=== PATIENT | female | born 1985 | race Hispanic/Latino ===

== ENCOUNTER 2023-12-08 15:33 | Observation (INO) | payer OTHER, SELFPAY ==
[2023-12-08 16:20] LABS: Absolute Basophils 0.1 K/uL (0-0.5); Absolute Eosinophils 0.1 K/uL (0-0.5); Absolute Lymphocytes (CBC) 1.3 K/uL (0.7-4.9); Absolute Monocytes 0.4 K/uL (0.1-1.3); Basophils % 1.1 % (0-1.3); Eosinophils % 2.4 % (0-4.4); Hematocrit 26.8 % (36.0-45.0); Hemoglobin 7.7 g/dL (12.0-15.0); Lymphocytes % 22.4 % (15.3-44.8); MCH 18.4 pg (27.0-35.0); MCHC 28.8 g/dL (32.0-36.0); MPV 9.2 fL (7.6-11.3); Monocytes % 7.4 % (3.3-12.3); Neutrophils % 66.7 % (41.7-73.7); Platelets 319 thou/uL (152-406); RBC Red Blood Cell Count 4.19 M/uL (3.86-4.86); Red Cell Distribution Width 18.6 % (12.1-15.2)
[2023-12-08 16:30] LABS: PT Prothrombin Time 12.6 SECONDS (9.4-12.5); Protime INR 1.13; Specific Gravity 1.005 (1.005-1.030)
[2023-12-08 16:31] LABS: PTT, Activated Partial Thromb 32.2 SECONDS (24.3-36.9); Specific Gravity 1.005 (1.005-1.030); Sqamous Epithelial <5 /HPF (None Seen); Urine Bacteria <20 /HPF (<20); Urine Bilirubin NEGATIVE (Negative); Urine Blood Negative (Negative); Urine Clarity Turbid (Clear); Urine Color Colorless (Yellow); Urine Culture Reflex Order NOT NEEDED; Urine Glucose NEGATIVE (Negative); Urine Ketones NEGATIVE (Negative); Urine Microscopic Reflex YN ORDER UMIC; Urine Nitrite NEGATIVE (Negative); Urine Protein NEGATIVE (Negative); Urine RBC <5 /HPF (None Seen); Urine Urobilinogen Normal (Normal); Urine WBC <5 /HPF (<5)
[2023-12-08 16:39] LABS: ALT/SGPT 24 U/L (13-56); AST/SGOT 19 U/L (15-37); Albumin 3.8 g/dL (3.4-5.0); Alkaline Phosphatase 27 U/L (45-117); Anion Gap 4.9 mEq/L (5.0-15.0); BUN Blood Urea Nitrogen 10 mg/dL (7-18); Bicarbonate 27 mEq/L (21-32); Bilirubin Direct < 0.2 mg/dL (0-0.2); Bilirubin Total 0.2 mg/dL (0.2-1.0); Globulin 3.7 g/dL (2.3-3.5); Glomerular Filtration Rate 119 ml/min (=/>90); Glucose Level 117 mg/dL (74-106); Potassium 3.9 mEq/L (3.5-5.1); Protein, Total 7.5 g/dL (6.4-8.2); Sodium Level 137 mEq/L (136-145); Troponin High Sensitivity < 3.0 pg/mL (<58.9)
[2023-12-08 17:11] LABS: Blood Morphology Comment NOTED (NOT SEEN); Hypochromasia 2+; Microcytosis 2+; Platelet Estimate ADEQ; White Blood Cell Scan OK (OK)
--- NOTE | 2023-12-08 17:11 | RAD REPORT ---
EXAMINATION: ONE VIEW CHEST XR CLINICAL INDICATION: PALPITATIONS TECHNIQUE: Frontal chest projection is submitted. Examination is limited by patient positioning and t echnique. COMPARISON: No prior exam. FINDINGS: The lungs are well inflated and clear. The heart is normal in size. No displaced fractures identified . IMPRESSION: No acute intrathoracic abnormalities.
--- NOTE | 2023-12-08 17:45 | EDPHYS ---
Physician Documentation [facility] Name: Giana Sands Age: 38 yrs Sex: Female : 1985 Arrival Date: 12/08/2023 Time: 15:33 Bed 10 Private MD: ED Physician Jalil Tubbs HPI: 12/07 17:15 This 38 yrs old Female presents to ER via EMS with complaints of Dizziness. rn 17:15 The patient presents with dizziness, generalized weakness, lightheadedness. Onset: The rn symptoms/episode began/occurred just prior to arrival. Modifying factors: The symptoms are alleviated by lying down, the symptoms are aggravated by standing up, changing position. Associated signs and symptoms: Pertinent negatives: abdominal pain, chest pain, shortness of breath, syncope. Severity of symptoms: At their worst the symptoms were mild in the emergency department the symptoms have improved. The patient has experienced similar episodes in the past. Patient reports was at store and felt lightheaded, dizziness, short of breath with exertion. Patient states has had this happen before but did not require blood transfusion. Has history of anemia. Does not accept blood products. Just finished menstrual period 4 days ago, had some clot. Otherwise is regular. No known malignancy or problems otherwise. Does not take blood thinners. If at rest patient denies any shortness of breath or dizziness. No chest pain. No blood in stool or dark stool.. Historical: - Allergies: 15:41 No Known Allergies; rs5 - PMHx: 15:41 mitral valve prolapse; Anemia; rs5 - PSHx: 15:41 None; rs5 - Immunization history:: Adult Immunizations up to date. - Infectious Disease History:: Denies. - Social history:: Smoking status: Patient denies any tobacco usage or history of. - Family history:: not pertinent. - Hospitalizations: : No recent hospitalization is reported. ROS: 17:15 Constitutional: Negative for fever, chills, and weight loss, Cardiovascular: Positive rn for palpitations Respiratory: Positive for shortness of breath Abdomen/GI: Negative for abdominal pain or blood in stool : Negative for vaginal bleeding currently Neuro: Positive for generalized weakness and lightheaded. Exam: 17:15 Constitutional: This is a well developed, well nourished patient who is awake, alert, rn and in no acute distress. Cardiovascular: Regular rate and rhythm. No pulse deficits. Respiratory: No increased work of breathing, no retractions or nasal flaring. Abdomen/GI: Soft, non-tender MS/ Extremity: Pulses equal, no cyanosis. Neuro: Awake and alert, GCS 15, oriented to person, place, time, and situation. Cranial nerves II-XII grossly intact. Motor strength 5/5 in all extremities. Sensory grossly intact. 17:27 ECG was reviewed by the Attending Physician. rn Vital Signs: 15:39 BP 114 / 79; Pulse 80; Resp 17; Temp 98(O); Pulse Ox 99% on R/A; rs5 17:37 BP 97 / 68; Pulse 84; Resp 18; Pulse Ox 98% on R/A; rs5 17:42 BP 96 / 64; rn 18:30 BP 105 / 71; Pulse 77; Resp 17; Pulse Ox 99% on R/A; rs5 MDM: 15:39 Medical Screening Exam initiated rn 17:18 ED course: Patient with microcytic anemia, initially ordered blood transfusion but rn patient states cannot except blood products. States this has happened once in the past and got iron transfusion and felt better. Spoke with pharmacy and they are preparing iron transfusion to be given then will discharge patient. Patient is supposed be taking iron supplements at home but states they make her stomach upset with nausea and abdominal pain so stopped them. No current bleeding. Recommend [employer] follow-up for possible fibroid or other workup needed.. 17:41 Differential diagnosis: cardiac arrhythmia, generalized weakness, hypovolemia, rn idiopathic dizziness, Anemia from menorrhagia, iron deficiency anemia. Data reviewed: vital signs, nurses notes, lab test result(s), and as a result, I will admit patient. 17:42 Counseling: I had a detailed discussion with the patient and/or guardian regarding the rn historical points, exam findings, and any diagnostic results supporting the discharge/admit diagnosis, lab results, radiology results, the need for further work-up and treatment in the hospital. Response to treatment: There is no appreciated change of the patient's symptoms at this time, and as a result, I will admit patient. ED course: Patient is okay getting iron infusion. On reevaluation patient's blood pressure was 96/64. Verified that she is no longer bleeding. Source is most likely fibroids are menorrhagia. Consulted with Dr. Hansen, hospitalist, is okay observing her overnight given symptomatic anemia and to see if she needs further treatment. Patient is okay with admission for observation.. 12/08 07:46 ED course: Spoke with pharmacy prior to admission, they took verbal order for iron rn wound. . 12/07 15:46 Order name: Basic Metabolic Panel; Complete Time: 16:53 rn 12/07 15:46 Order name: CBC with Diff; Complete Time: 17:14 rn 12/07 15:46 Order name: LFT's; Complete Time: 16:53 rn 12/07 15:46 Order name: Magnesium; Complete Time: 16:53 rn 12/07 15:46 Order name: PT-INR; Complete Time: 16:53 rn 12/07 15:46 Order name: Troponin HS; Complete Time: 16:53 rn 12/07 15:46 Order name: Ptt, Activated; Complete Time: 16:53 rn 12/07 15:46 Order name: Test, Urine; Complete Time: 16:53 rn 12/07 15:46 Order name: Urinalysis w/ reflexes; Complete Time: 16:53 rn 12/07 16:53 Order name: Type And Screen; Complete Time: 07:46 rn 12/07 16:57 Order name: Bb Add On bd 12/07 17:12 Order name: CBC Smear Scan; Complete Time: 17:14 EDMS 12/07 18:00 Order name: ABO/RH no charge; Complete Time: 07:46 EDMS 12/07 18:33 Order name: CBC with Automated Diff EDMS 12/07 18:33 Order name: CBC with Automated Diff; Complete Time: 07:46 EDMS 12/07 18:33 Order name: Comprehensive Metabolic Panel EDMS 12/07 18:33 Order name: Comprehensive Metabolic Panel EDMS 12/07 18:33 Order name: Ferritin EDMS 12/07 18:33 Order name: Ferritin EDMS 12/07 18:33 Order name: Iron EDMS 12/07 18:33 Order name: Iron EDMS 12/07 18:33 Order name: Protime (+INR) EDMS 12/07 18:33 Order name: Protime (+INR); Complete Time: 07:46 EDMS 12/07 18:33 Order name: PTT, Activated Partial Thromb EDMS 12/07 18:33 Order name: PTT, Activated Partial Thromb; Complete Time: 07:46 EDMS 12/07 18:33 Order name: Retic Count EDMS 12/07 18:33 Order name: Retic Count; Complete Time: 07:46 EDMS 12/07 18:33 Order name: Transferrin Sat/Iron Binding EDMS 12/07 18:33 Order name: Transferrin Sat/Iron Binding EDMS 12/07 18:33 Order name: Vitamin B12 Level EDMS 12/07 18:33 Order name: Vitamin B12 Level EDMS 12/07 15:46 Order name: XRAY Chest (1 view); Complete Time: 17:14 rn 12/07 18:38 Order name: Pelvis Complete EDMS 12/07 18:38 Order name: Pelvis Complete EDMS 12/07 15:46 Order name: EKG; Complete Time: 15:46 rn 12/07 15:46 Order name: IV Start; Complete Time: 17:21 rn 12/07 15:46 Order name: Cardiac monitoring; Complete Time: 16:12 rn 12/07 15:46 Order name: EKG - Nurse/Tech; Complete Time: 16:12 rn 12/07 15:46 Order name: Labs collected and sent; Complete Time: 16:12 rn 12/07 15:46 Order name: O2 Per Protocol; Complete Time: 16:12 rn 12/07 15:46 Order name: O2 Sat Monitoring; Complete Time: 16:12 rn EC/30 17:27 Rate is 73 beats/min. Rhythm is regular. QRS [place] is Normal. NC interval is normal. QRS rn interval is normal. QT interval is normal. No Q waves. T waves are Normal. No ST changes noted. Clinical impression: NSR w/ Non-specific ST/T Changes. Interpreted by me. Reviewed by me. Administered Medications: No medications were administered Disposition Summary: 12/08/23 17:44 Hospitalization Ordered Notes: Hospitalization Status: Observation rn Provider: Janet Hansen [facility] Condition: Stable rn Problem: new rn Symptoms: are unchanged rn Bed/Room Type: Standard rn Room Assignment: 411(12/08/23 19:30) lg3 Diagnosis - Anemia, unspecified - symptomatic rn Forms: - Medication Reconciliation Form rn - SBAR form rn - Leadership Thank You Letter rn Signatures: Dispatcher [employer] EDMS Jalil Tubbs MD MD rn Able, Lacie, RN RN lg3 Anoop Christian RN RN rs5 Corrections: (The following items were deleted from the chart) 18:10 17:07 Packed RBC Leukored ordered. EDKS EDMS 19:30 17:44 rn lg3
--- NOTE | 2023-12-08 17:45 | ER ---
Nurse's Notes [facility] Name: Giana aSnds Age: 38 yrs Sex: Female : 1985 Arrival Date: 12/08/2023 Time: 15:33 Bed 10 Private MD: Diagnosis: Anemia, unspecified-symptomatic Presentation: 12/07 15:39 Chief complaint: EMS states: Sudden onset dizziness, palpitations, and SOB that started rs5 at \T\[id number], denies chest pains at this moment. Coronavirus screen: At this time, the client does not indicate any symptoms associated with coronavirus-19. Ebola Screen: No symptoms or risks identified at this time. Initial Sepsis Screen: Does the patient meet any 2 criteria? RR > 20 per min. Does the patient have a suspected source of infection? No. Patient's initial sepsis screen is negative. Risk Assessment: Do you want to hurt yourself or someone else? Patient reports no desire to harm self or others. Onset of symptoms was December 08, 2023. 15:39 Method Of Arrival: EMS: [facility] rs5 15:39 Acuity: DANIELA 3 rs5 Triage Assessment: 15:41 General: Appears uncomfortable, Behavior is calm, cooperative. Pain: Denies pain. rs5 Historical: - Allergies: 15:41 No Known Allergies; rs5 - PMHx: 15:41 mitral valve prolapse; Anemia; rs5 - PSHx: 15:41 None; rs5 - Immunization history:: Adult Immunizations up to date. - Infectious Disease History:: Denies. - Social history:: Smoking status: Patient denies any tobacco usage or history of. - Family history:: not pertinent. - Hospitalizations: : No recent hospitalization is reported. Screenin:40 [facility] ED Fall Risk Assessment (Adult) History of falling in the last 3 months, rs5 including since admission No falls in past 3 months (0 pts) Confusion or Disorientation No (0 pts) Intoxicated or Sedated No (0 pts) Impaired Gait No (0 pts) Mobility Assist Device Used No (0 pt) Altered Elimination No (0 pt) Score/Fall Risk Level 0 - 2 = Low Risk Oriented to surroundings, Maintained a safe environment. Abuse screen: Denies threats or abuse. Nutritional screening: No deficits noted. Tuberculosis screening: No symptoms or risk factors identified. Assessment: 15:40 General: Appears in no apparent distress. uncomfortable, Behavior is calm, cooperative. rs5 Pain: Denies pain. Neuro: Level of Consciousness is awake, alert, obeys commands, Oriented to person, place, time, situation. Neuro: Reports dizziness. Cardiovascular: Reports palpitations, Patient's skin is warm and dry. Respiratory: Airway is patent Respiratory effort is even, unlabored, Respiratory pattern is regular, symmetrical. GI: Abdomen is round non-distended, Abd is soft and non tender X 4 quads. : No signs and/or symptoms were reported regarding the genitourinary system. EENT: No signs and/or symptoms were reported regarding the EENT system. Derm: Skin is intact, Skin is dry, Skin is normal. Musculoskeletal: Range of motion: intact in all extremities. 16:35 Reassessment: Patient and/or family updated on plan of care and expected duration. Pain rs5 level reassessed. Patient is alert, oriented x 3, equal unlabored respirations, skin warm/dry/pink. 17:41 Reassessment: Patient and/or family updated on plan of care and expected duration. Pain rs5 level reassessed. Patient is alert, oriented x 3, equal unlabored respirations, skin warm/dry/pink. Patient states feeling better. Patient states symptoms have improved. 18:20 Reassessment: To bedside for iron infusion per MD orders, med brought to me by rs5 pharmacy, 270 ml bag of iron infusing to right AC at 136 ml/hr per pharmacy and MD orders . 18:45 Reassessment: No changes from previously documented assessment. rs5 Vital Signs: 15:39 BP 114 / 79; Pulse 80; Resp 17; Temp 98(O); Pulse Ox 99% on R/A; rs5 17:37 BP 97 / 68; Pulse 84; Resp 18; Pulse Ox 98% on R/A; rs5 17:42 BP 96 / 64; rn 18:30 BP 105 / 71; Pulse 77; Resp 17; Pulse Ox 99% on R/A; rs5 ED Course: 15:39 Patient arrived in ED. rs5 15:39 Jalil Tubbs MD is Attending Physician. rn 15:40 No provider procedures requiring assistance completed. rs5 15:40 Patient has correct armband on for positive identification. Placed in gown. Bed in low rs5 position. Call light in reach. Side rails up X2. 15:41 Triage completed. rs5 15:45 Inserted saline lock: 18 gauge in right antecubital area, using aseptic technique. rs5 Blood collected. Flushed with 10 mL NS. 16:12 Anoop Christian, RN is Primary Nurse. rs5 16:52 XRAY Chest (1 view) In Process Unspecified. EDMS 17:21 Bb Add On Sent. rs5 17:44 Janet Hansen MD is Hospitalizing Provider. rn 20:58 Patient admitted, IV remains in place. lg3 Administered Medications: No medications were administered Medication: 18:46 VIS not applicable for this client. rs5 Outcome: 17:44 Decision to Hospitalize by Provider. rn 20:58 Admitted to Med/surg accompanied by tech, via wheelchair, room 411, lg3 20:58 Condition: stable 20:58 Instructed on the need for admit, Demonstrated understanding of instructions, 20:58 Patient left the ED. lg3 Signatures: Dispatcher [employer] EDJalil Reis MD MD rn Able, Lacie, RN RN lg3 Anoop Christian, RN RN rs5
[2023-12-08] MEDS: SOD FERRIC GLUC COMPLX/SUCROSE 250 MG in NA CHLORIDE 0.9% 250 ML IV SCH (18:00)
[2023-12-08] MEDS ORDERED: ONDANSETRON 4 MG/2 ML VIAL IV PRN (18:29)
[2023-12-08] MEDS ORDERED: MORPHINE 2 MG/ML SYR IV PRN (18:29)
--- NOTE | 2023-12-08 18:36 | P.HP ---
Certification for Inpatient Patient admitted to: Observation With expected LOS: <2 Midnights Patient will require the following post-hospital care: None Practitioner: I am a practitioner with admitting privileges, knowledge of patient current condition, hospital course, and medical plan of care. Services: Services provided to patient in accordance with Admission requirements found in Title 42 Section 412.3 of the Code of Federal Regulations Patient History Date of Service: 12/08/23 Reason for admission: Symptomatic anemia History of Present Illness: Patient is a 38-year-old female who is a Jehovah witness who comes into the hospital with symptomatic anemia. Hemoglobin is 7.7. Patient states she is has menorrhagia. She has followed up with decision science analyst and they have talked about hysterectomy. She has been feeling lightheaded so she came to the emergency room for further evaluation. In the ER she was hypotensive with a blood pressure of 90s over 50s and a hemoglobin is 7.7 as mentioned above. Patient refused blood transfusion, but since her blood pressure has been low I was called by ER physician for admission for observation. At this time patient will be given gentle hydration to help with her blood pressure and will give her iron transfusion. Will repeat her hemoglobin in the morning. If her hemoglobin is still low then we will probably give her erythropoietin. At this time patient will be admitted to the hospital for observation status. - Past Medical/Surgical History -: Menorrhagia Past Surgical History: Patient denies surgical history - Family History Father Family History: Reviewed- Non-Contributory - Social History Smoking Status: Never smoker Alcohol use: No CD- Drugs: No Review of Systems 10-point ROS is otherwise unremarkable Physical Examination - Vital Signs Temperature: 98 F Blood Pressure: 90/50 Pulse: 110 Respirations: 18 Pulse Ox (%): 95 - Physical Exam General: Alert, In no apparent distress, Oriented x3, Other (Conjunctiva pallor) HEENT: Atraumatic, PERRLA, Mucous membr. moist/pink, EOMI, Sclerae nonicteric Neck: Supple, 2+ carotid pulse no bruit, No LAD, Without JVD or thyroid abnormality Respiratory: Clear to auscultation bilaterally, Normal air movement Cardiovascular: No murmurs, Other (Tachycardic) Gastrointestinal: Normal bowel sounds, Soft and benign, Non-distended, No tenderness Musculoskeletal: No clubbing, No swelling, No tenderness Integumentary: No rashes Neurological: Normal gait, Normal speech, Normal strength at 5/5 x4 extr, Normal tone, Sensation intact, Cranial nerves 3-12 intact, Normal affect Lymphatics: No axilla or inguinal lymphadenopathy - Studies Laboratory Data (last 24 hrs) 12/08/23 12/08/23 12/08/23 16:02 16:02 16:02 WBC 6.00 Hgb 7.7 L Hct 26.8 L Plt Count 319 PT 12.6 H INR 1.13 APTT 32.2 Sodium 137 Potassium 3.9 BUN 10 Creatinine 0.59 Glucose 117 H Magnesium 2.0 Total Bilirubin 0.2 AST 19 ALT 24 Alkaline Phosphatase 27 L Assessment & Plan - Problems (Diagnosis) (1) Symptomatic anemia Current Visit: Yes Status: Acute (2) Menorrhagia Current Visit: Yes Status: Acute - Plan Plan: 1. Patient with symptomatic anemia; patient has a microcytic hypochromic anemia which is most likely iron deficiency with acute blood loss related to menorrhagia. Patient will be given iron transfusion. She does not want a blood transfusion as she is a Jehovah witness. Will repeat her hemoglobin in the morning. As long as her hemoglobin is improving and her lightheadedness has resolved and anticipate discharge. Her blood pressure is on the low side at 90 /50. She is symptomatic because of the low blood pressures so we will gently hydrate her and see if her blood pressure improves. If this improves then I anticipate her being able to go home. We may do a pelvic ultrasound in the morning if patient is not having any bleeding. At this time patient will be admitted for observation. Discharge Plan: Home Plan to discharge in: 24 Hours - Advance Directives Does patient have a Living Will: No Does patient have a Durable POA for Healthcare: No - Code Status/Comfort Care Code Status Assessed: Yes Code Status: Full Code Critical Care: No Time Spent Managing PTS Care (In Minutes): 45
[2023-12-08] MEDS: NA CHLORIDE 0.9% 1,000 ML IV SCH (23:18)
[2023-12-09 00:28] VITALS: BMI 21.4
[2023-12-09 07:32] LABS: Absolute Basophils 0.1 K/uL (0-0.5); Absolute Eosinophils 0.1 K/uL (0-0.5); Absolute Lymphocytes (CBC) 1.3 K/uL (0.7-4.9); Absolute Monocytes 0.7 K/uL (0.1-1.3); Absolute Neutrophil 3.8 K/uL (1.8-8.0); Basophils % 0.9 % (0-1.3); Eosinophils % 1.9 % (0-4.4); Hematocrit 23.7 % (36.0-45.0); Hemoglobin 7.1 g/dL (12.0-15.0); Lymphocytes % 22.1 % (15.3-44.8); MCH 19.4 pg (27.0-35.0); MCV 64.6 fL (80-100); MPV 9.1 fL (7.6-11.3); Monocytes % 11.7 % (3.3-12.3); Neutrophils % 63.4 % (41.7-73.7); Percent Reticulocyte Count 1.08 % (0.4-2.05); Platelets 262 thou/uL (152-406); RBC Red Blood Cell Count 3.67 M/uL (3.86-4.86); Red Cell Distribution Width 18.2 % (12.1-15.2)
[2023-12-09 07:42] LABS: PT Prothrombin Time 14.1 SECONDS (9.4-12.5); PTT, Activated Partial Thromb 36.7 SECONDS (24.3-36.9); Protime INR 1.27
--- NOTE | 2023-12-09 08:01 | RAD REPORT ---
The EXAMINATION: US Pelvis Complete CLINICAL INDICATION: Female 38 years old.[facility] 12/06/2023 menorrhagia-history TECHNIQUE: Real-time ultrasonography of the pelvis was performed transabdominally. Color and spectral Doppler evaluation of the ovaries was performed. COMPARISON: No prior exam. FINDINGS: UTERUS AND CERVIX: The uterus measures 7.3 cm in length. The uterus is normal. No masses seen. The en dometrium is normal, 0.3 cm in thickness. RIGHT OVARY: Normal The right ovary measures 3.9 x 2.2 x 3.6 cm. Contains a dominant cyst or follicle with anechoic fluid measuring 1.9 cm. Normal color and spectral Doppler evaluation of the right ovary.. LEFT OVARY: Normal The left ovary measures 2.8 x 1.8 x 2.0 cm. Normal color and spectral Doppler evaluation of the left ovary.. FREE FLUID: No free fluid. IMPRESSION: No suspicious abnormalities in the pelvis. Dominant right ovarian cyst or follicle, likely physiologi c.
[2023-12-09 08:04] LABS: Albumin 3.2 g/dL (3.4-5.0); Albumin/Globulin Ratio 1.1 (1.1-1.8); Anion Gap 6.7 mEq/L (5.0-15.0); Bilirubin Total 0.3 mg/dL (0.2-1.0); Ferritin 13.9 ng/mL (8-252); Potassium 3.7 mEq/L (3.5-5.1); Protein, Total 6.2 g/dL (6.4-8.2)
--- NOTE | 2023-12-09 11:09 | EKG ---
Test Date: 2023-12-08 Test Time: 15:47:32 Wax Pourer: JAZMÍN MEASUREMENT RESULTS: Intervals: Rate: 73 IA: 182 QRSD: 92 QT: 418 QTc: 460 [place]: P: 71 IA: 182 QRS: 45 T: 48 INTERPRETIVE STATEMENTS: Normal sinus rhythm with sinus arrhythmia Incomplete right bundle branch block Nonspecific ST abnormality Abnormal ECG No previous ECG available for comparison Electronically Signed On 12-09-23 11:07:23 CDT by Tyler Watkins
[2023-12-09] MEDS: ACETAMINOPHEN 500 MG TAB PO PRN (11:29)
[2023-12-09] MEDS: EPOETIN ALFA-EPBX 10,000 UNIT/ML VIAL SQ SCH (12:05)
[2023-12-09 12:16] VITALS: O2SAT 99
[2023-12-09 13:02] VITALS: TEMP 98
[2023-12-09] MEDS: MEDROXYPROGEST ACET 150 MG/ML IM SCH (14:34)
[2023-12-09 16:30] VITALS: BP 98/53
== END 2023-12-09 17:49 | disposition home or self-care (01) ==
LOC: EDBD 15:33 → ER 15:33 → ERHOLD 18:29 → 4TH 20:52
PROVIDERS: ADMIT Hospitalist; ATTEND Hospitalist
DX: D64.89 Other specified anemias (principal); N92.0 Excessive and frequent menstruation with regular cycle
CPT/HCPCS: 36415; 71045; 76856; 80048; 80053; 80076; 81001; 81025; 82607; 82728; 83540; 83735; 84466; 84484; 85025; 85044; 85610; 85730; 86850; 86900; 86901; 93005; G0378; J1050; J2916; J7030; J7050; Q5106

== ENCOUNTER 2024-06-03 01:00 | Emergency (ER) | payer OTHER ==
--- OUTSIDE RECORDS SUMMARY | 2024-06-03 01:05 | XMS REPORT | Continuity of Care Document ---
Author Name Unknown Address [address] [facility] [address] [place] [address] [facility] Address [address] [facility] [address] [place] [address] Care Team Providers Care Sample Puller Name Role Phone KIMBERLY MARTINEZ Attending Clinician UnavailBRIANDA Kay Attending Clinician Unavailable CLEO GOODMAN Attending Clinician Unavaila ble [id number] Attending Clinician Unavailable LAB47 Attending Clinician Unavailable DARON LYLE Attending Clinician Unavailable [id number] Attending Clinician Unavailable RAY CREWS Attending Clinician Unavailable CEZAR PAL Attending Clinician Unavailable HILDA RODRIGUEZ Attending Clinician Unava ilgiuliana SHETTY MD Attending Clinician Unavailab le [id number] Attending Clinician Unavailable COSMO SALAS Attending Clinician Unavailable GEOFF SHANE Attending Clinician Unavailable Sb Brandon Attending Clinician Unavailable Anais Ruff Attending Clinician Unavail able Sb Brandon Admitting Clinician Unavailable Anais Ruff Admitting Clinician Unavail able Payers Payer Name Policy Type Policy Number Effective Date Expirati on Date Source SHILA Schmidt RN SOCIAL WORK 94 ADULT DENTAL+VISION 9 [id number] 2024 00:00:00 Problems Condition Name Condition Details Condition Category Status Onset Date Resolution Date Last Treatment Date Treating Clinician Comments Source Menorrhagi a with regular cycle Menorrhagi a with regular cycle Disease Active 03-19 00:00: 00 So Seybold - Externa l Iron deficiency anemia Iron deficiency anemia Disease Active 03-19 00:00: 00 So Seybold - Externa l Refusal of blood transfusio ns as patient is [facility] Refusal of blood transfusio ns as patient is [facility] Disease Active 03-19 00:00: 00 So Seybold - Externa l History of bilateral tubal ligation History of bilateral tubal ligation Disease Active 02-08 00:00: 00 So Seybold - Externa l Family history of diabetes mellitus in mother Family history of diabetes mellitus in mother Disease Active So Seybold - Externa l Uterine scar from previous delivery Uterine scar from previous delivery Problem Active [facility] Encounter for supervisio n of low-risk in first trimester Encounter for supervisio n of low-risk in first trimester Problem Active [facility] Mitral valve disease Mitral valve disease Problem Active [facility] Threatened in first trimester Threatened in first trimester Problem Active [facility] Vaginal bleeding Vaginal bleeding Problem Active [facility] Complete Complete Problem Active [facility] Amenorrhea Amenorrhea Problem Active [facility] Supervisio n of high risk in first trimester Supervisio n of high risk in first trimester Problem Active [facility] Nausea/vom iting in Nausea/vom iting in Problem Active [facility] Supervisio n of high risk in second trimester Supervisio n of high risk in second trimester Problem Active [facility] Allergies, Adverse Reactions, Alerts Allergy Name Allergy Type Status Severity Reaction(s) Onset Date Inactive Date Treating Clinician Comments Source No Known Allergie s DA Active U 8 00:00: 00 [facility] No Known Allergie s DA Active U 2018-02 00:00: 00 [facility] No Known Allergie s DA Active U 04-15 00:00: 00 [facility] Social History Social Habit Start Date Stop Date Quantity Comments Source Sexual orientation Storm flores Abad - External ASSERTION Not So Melgoza - External Alcoholic beverage intake 2024-03-23 00:00:00 2024-03-23 00:00:00 Lifetime non-drinker (finding) So Melgoza - External Education 2024-03-20 00:00:00 2024-03-20 00:00:00 8 So [facility]goza - External Tobacco use and exposure 2023-05-03 00:00:00 2023-05-03 00:00:00 Smokeless tobacco non-user So [facility]goza - External Alcohol intake 2023-05-03 00:00:00 2023-05-03 00:00:00 Lifetime non-drinker (finding) So Melgoza - External History of Social function 2023-05-03 00:00:00 2023-05-03 00:00:00 So Melgoza - External Sex 2022-09-22 16:37:56 2022-09-22 16:37:56 Female (finding) So Melgoza - External Sex assigned at 1985 00:00:00 1985 00:00:00 So [facility]goza - External Smoking Status Start Date Stop Date Source Never smoked tobacco So Melgoza - External Medications Ordered Medication Name Filled Medication Name Start Date Stop Date Current Medication? Ordering Clinician Indication Dosage Frequency Signature (SIG) Comments Components Source Medroxyprog esterone (DEPO-PROVE RA) [150 mg/mL] - Once Every 3 Months 03-23 15:45: 00 03-23 15:51 :47 No [id number] 150mg So Melgoza - Externa l Multiple Vitamin (DAILY VITAMIN OR) 03-23 09:03: 38 Yes Take by mouth. So kate Ferrous Sulfate (Iron) 325 (65 Fe) MG oral Tablet 03-23 09:03: 38 Yes 506 325mg QD Take 1 tablet (325 mg total) by mouth daily (with breakfast) . Indication s: Anemia From Inadequate Iron in the Body So kate Ferrous Sulfate (Iron) 325 (65 Fe) MG oral Tablet 03-20 09:45: 42 Yes 506 325mg QD Take 1 tablet (325 mg total) by mouth daily (with breakfast) . Indication s: Anemia From Inadequate Iron in the Body So kate Multiple Vitamin (DAILY VITAMIN OR) 03-20 09:35: 40 Yes Take by mouth. So kate Multiple Vitamin (DAILY VITAMIN OR) 05-02 13:52: 30 Yes Take by mouth. So kate Norgestimat e-Eth Estradiol (Sprintec 28) 0.25-35 MG-MCG oral Tablet 05-02 00:00: 00 03-20 00:00 :00 No [id number] 100 1{tbl} QD Take 1 tablet by mouth daily. So kate Polysacchar brie Iron Complex (Nu-Iron) 150 MG oral Capsule 04-06 00:00: 00 03-20 00:00 :00 No 150mg QD Take 1 capsule (150 mg total) by mouth daily. So kate Multiple Vitamin (DAILY VITAMIN OR) 03-19 08:55: 15 Yes Take by mouth. So kate Ferrous Sulfate 325 (65 Fe) MG oral Tablet 03-19 00:00: 00 Yes [id number] 325mg Take 1 tablet (325 mg total) by mouth daily (with breakfast) . So kate Norgestimat e-Ethinyl Estradiol (Tri-Sprint ec) 0.18/0.215/ 0.25 MG-35 MCG oral Tablet 03-19 00:00: 00 03-20 00:00 :00 No [id number] 1{tbl} QD Take 1 tablet by mouth daily. So Seybold - Externa l Ondansetron Ondansetron 2018-05-25 00:00: 00 Yes Rajendra Barreto as directed [facility] Yes Rajendra Mary Lou 1 tablet [facility] Vital Signs Vital Name Observation Time Observation Value Comments S ource Systolic blood pressure 2024-03-23 15:03:00 112 mm[Hg] So Seybo ld - External Diastolic blood pressure 2024-03-23 15:03:00 72 mm[Hg] So Seybo ld - External Heart rate 2024-03-23 15:03:00 69 /min Kelse y Seybold - External Respiratory rate 2024-03-23 15:03:00 18 /min So Seybold - External Body height 2024-03-23 15:03:00 154.9 cm Belkis ey Seybold - External Body weight 2024-03-23 15:03:00 54.432 kg Belkis ey Seybold - External BMI 2024-03-23 15:03:00 22.67 kg/m2 Belkis ey Seybold - External Systolic blood pressure 2024-03-20 15:32:00 98 mm[Hg] So Seybo ld - External Diastolic blood pressure 2024-03-20 15:32:00 80 mm[Hg] So Seybo ld - External Heart rate 2024-03-20 15:32:00 70 /min Kelse y Seybold - External Body temperature 2024-03-20 15:32:00 36.5 Elsy So Seybold - External Respiratory rate 2024-03-20 15:32:00 18 /min So Seybold - External Body height 2024-03-20 15:32:00 154.9 cm Belkis ey Seybold - External Body weight 2024-03-20 15:32:00 56.246 kg Belkis ey Seybold - External BMI 2024-03-20 15:32:00 23.43 kg/m2 Belkis ey Seybold - External Oxygen saturation in Arterial blood by Pulse oximetry 2024-03-20 15:32:00 99 /min So Seybo ld - External Systolic blood pressure 2023-05-03 18:47:00 107 mm[Hg] So Seybo ld - External Diastolic blood pressure 2023-05-03 18:47:00 68 mm[Hg] So Seybo ld - External Heart rate 2023-05-03 18:47:00 68 /min Kelse y Seybold - External Body height 2023-05-03 18:47:00 154.9 cm Belkis ey Seybold - External Body weight 2023-05-03 18:47:00 51.256 kg Belkis ey Seybold - External BMI 2023-05-03 18:47:00 21.35 kg/m2 Belkis ey Seybold - External Systolic blood pressure 2023-03-19 14:55:00 110 mm[Hg] So Seybo ld - External Diastolic blood pressure 2023-03-19 14:55:00 70 mm[Hg] So Seybo ld - External Heart rate 2023-03-19 14:55:00 61 /min Kelse y Seybold - External Body temperature 2023-03-19 14:55:00 36.61 Elsy So Seybold - External Respiratory rate 2023-03-19 14:55:00 12 /min So Seybold - External Body height 2023-03-19 14:55:00 154.9 cm Belkis ey Seybold - External Body weight 2023-03-19 14:55:00 49.442 kg Belkis ey Seybold - External BMI 2023-03-19 14:55:00 20.60 kg/m2 Belkis ey Seybold - External Oxygen saturation in Arterial blood by Pulse oximetry 2023-03-19 14:55:00 100 /min So [facility] - External Encounters Start Date/Time End Date/Time Encounter Type Admission Type Attending [facility] Care Facility Care Department Encounter ID Source 2024-06-23 09:00:00 2024-06-23 09:00:00 Outpatient KIMBERLY MARTINEZ [id number] So [facility] 2024-06-20 08:45:00 2024-06-20 08:45:00 Outpatient BRIANDA VILLARREAL [id number] So [facility] 2024-06-16 08:15:00 2024-06-16 08:15:00 Outpatient CLEO GOODMAN SO [id number] [facility] 2024-05-17 16:05:00 2024-05-17 16:05:00 Outpatient LAB57 SO SO [id number] [facility] 2024-05-17 15:00:00 2024-05-17 15:00:00 Outpatient SO SO [id number] [facility] 2024-05-15 00:00:00 2024-05-15 00:00:00 Outpatient MARTINEZ KIMBERLY SO CARVALHO [id number] [facility] 2024-03-24 15:45:00 2024-03-24 15:45:00 Outpatient CLEO GOODMAN SO [id number] [facility] 2024-03-23 10:00:00 2024-03-23 10:00:00 Outpatient LAB47 SO CARVALHO [id number] [facility] 2024-03-23 09:30:00 2024-03-23 09:30:00 Outpatient KIMBERLY MARTINEZ [id number] So [facility] 2024-03-23 08:30:00 2024-03-23 08:30:00 Outpatient MILTON LYLEER SO CARVALHO [id number] [facility] 2024-03-23 00:00:00 2024-03-23 00:00:00 Outpatient KIMBERLY MARTINEZ [id number] [facility] 2024-03-21 00:00:00 2024-03-21 00:00:00 Outpatient PREZABrayan, BRIANDA SO CARVALHO [id number] [facility] 2024-03-20 10:05:00 2024-03-20 10:05:00 Outpatient [id number] SO CARVALHO [id number] So Sey[facility] 2024-03-20 09:30:00 2024-03-20 09:30:00 Outpatient PREZAS, BRIANDA CARVALHO [id number] [facility] 2023-08-26 10:10:00 2023-08-26 10:10:00 Outpatient LAB47 SO CARVALHO [id number] So [facility] 2023-07-28 10:15:00 2023-07-28 10:15:00 Outpatient MARS RAY SO CARVALHO [id number] So [facility] 2023-07-09 09:00:00 2023-07-09 09:00:00 Outpatient DEMARCO, CEZAR SO CARVALHO [id number] So [facility] 2023-06-23 08:30:00 2023-06-23 08:30:00 Outpatient HILDA RODRIGUEZ [id number] So [facility] 2023-06-23 00:00:00 2023-06-23 00:00:00 Outpatient [facility]AY CREWS [id number] [facility] 09:15:00 2023-06-08 09:15:00 Outpatient HILDA RODRIGUEZ [id number] So [facility] 2023-05-14 00:00:00 2023-05-14 00:00:00 Outpatient MD SO MIKE [id number] So [facility] 2023-05-06 00:00:00 2023-05-06 00:00:00 Outpatient DEMARCO, CEZAR SO CARVALHO [id number] [facility] 2023-05-05 00:00:00 2023-05-05 00:00:00 Outpatient SO CARVALHO [id number] So [facility] 2023-05-04 00:00:00 2023-05-04 00:00:00 Outpatient RAY CREWS [id number] So [facility] 2023-05-03 14:55:00 2023-05-03 14:55:00 Outpatient [id number] SO CARVALHO [id number] [facility] 2023-05-03 13:45:00 2023-05-03 13:45:00 Outpatient RAY CREWS [id number] [facility] 2023-04-13 10:45:00 2023-04-13 10:45:00 Outpatient BRIANDA VILLARREAL [id number] So [facility] 2023-04-06 09:30:00 2023-04-06 09:30:00 Outpatient DEMARCO, CEZAR SO CARVALHO [id number] So [facility] 2023-04-06 00:00:00 2023-04-06 00:00:00 Outpatient DEMARCO, CEZAR SO CARVALHO [id number] So [facility] 2023-04-06 00:00:00 2023-04-06 00:00:00 Outpatient COSMO SALAS SO CARVALHO [id number] So [facility] 2023-03-23 00:00:00 2023-03-23 00:00:00 Outpatient MD SO MIKE [id number] [facility] 2023-03-19 09:35:00 2023-03-19 09:35:00 Outpatient LAB47 SO CARVALHO [id number] [facility] 2023-03-19 08:30:00 2023-03-19 08:30:00 Outpatient GEOFF SHANE SO CARVALHO [id number] [facility] 2022-10-05 16:59:00 2022-10-05 23:36:00 Inpatient EM MaicoessenceMosesan [facility]01 [id number] 34 [facility] 2022-10-05 14:05:00 2022-10-05 15:10:00 Emergency EM Anais Ruff [facility] [id number] 80 [facility] 2018-07-29 14:44:00 2018-07-29 14:44:00 [facility] [id number] [facility] 2018-07-28 11:15:00 2018-07-28 11:15:00 [facility] [id number] [facility] 2018-05-25 14:00:00 2018-05-25 14:00:00 Outpatient [facility] [id number] [facility] 2018-05-13 11:53:00 2018-05-13 11:53:00 Outpatient [facility] [id number] [facility] 2018-05-13 10:20:00 2018-05-13 10:20:00 Outpatient [facility] [id number] [facility] 2018-05-12 11:34:00 2018-05-12 11:34:00 Outpatient [facility] [id number] [facility] 2018-05-11 14:29:00 2018-05-11 14:29:00 Outpatient [facility] [id number] [facility] 2018-05-11 13:49:00 2018-05-11 13:49:00 Outpatient [facility] [id number] [facility] 2018-04-27 08:40:00 2018-04-27 08:40:00 Outpatient [facility] [id number] [facility] 2018-04-26 15:33:00 2018-04-26 15:33:00 Outpatient [facility] [id number] [facility] 2018-04-21 15:38:00 2018-04-21 15:38:00 [facility] [id number] [facility] 2018-04-21 11:44:00 2018-04-21 11:44:00 [facility] [id number] [facility] 2017-08-23 15:15:00 2017-08-23 15:15:00 [facility] [id number] [facility] 2017-08-09 15:45:00 2017-08-09 15:45:00 [facility] [id number] [facility] 2017-08-05 15:00:00 2017-08-05 15:00:00 Outpatient [facility] [id number] [facility] 2017-08-03 15:16:00 2017-08-03 15:16:00 Outpatient [facility] [id number] [facility] 2017-08-03 10:45:00 2017-08-03 10:45:00 Outpatient [facility] [id number] [facility] Results Test Description Test Time Test Comments Results Result Co mments Source TOTAL IRON BINDING [id number] 02:25:00* Test Item Value Reference Range Interpretation Comme nts TOTAL IRON BINDING CAPACITY (test code = TIBC) 478 mcg/dL 260-445 H [id number] 02:25:00* Test Item Value Reference Range Interpretation Comme nts FERRITIN (test code = BRANDIN) 2.3 ng/mL 11.0-306.8 L [id number] 02:25:00* Test Item Value Reference Range Interpretation Comme nts FERRITIN (test code = BRANDIN) 2.3 ng/mL 11.0-306.8 L TOTAL IRON BINDING [id number] 02:21:00* Test Item Value Reference Range Interpretation Comme nts TOTAL IRON BINDING CAPACITY (test code = TIBC) 478 mcg/dL 260-445 H SURGICAL [id number] 07:49:00 RUN DATE: 12/23/18 [facility] *LIVE* PAGE 1 RUN TIME: 748 Specimen Inquiry RUN USER: INTERFACE -------- ----PATIENT: BRIGHT NO LOC: CELY U #: [id number] AGE/SX: 33/F ROOM: [facility] RE12/20/18REG DR: Vaishali Michaels MD : 86 BED: 1 DIS: STATUS: ADM IN TLOC: SPEC #: [id number] RECD: 12/21/18 STATUS: ALLIE REQ #: [id number] KEILY: 12/21/[address] [facility] [address]: Vaishali Michaels MD ENTERED: 12/23/18 SP TYPE: SURG SPEC OTHR DR: Edwin Longo JR, MD ORDERED: LEVEL 4 CODES: [id number] - FALLOPIAN TUBE COPIES TO: Vaishali Michaels MD [address] [place] [id number] [email or web address] Edwin Longo JR, MD [address] [place] [address] PROCEDURES: GM LEVEL 4 (Incomplete) TISSUES: 1. FALLOPIAN TUBE, NOS - Fallopian tube, left, segment 2. FALLOPIAN TUBE, NOS - Fallopian tube, right, segment FINAL DIAGNOSIS Fallopian tube, right, segment: Complete transection. Fallopian tube, left, segment: Complete transection. GROSS AND MICROSCOPICGROSS DESCRIPTION: Received in formalin and labeled "left" is a 5.7 x 0.9 cm tam, cylindrical segment. [employer]er cross-sections are submitted in (A). Received in formalin and labeled "right" nicole 6.3 x 1 cm tam cylindrical segment. [employer] cross-sections are submitted in (B). MICROSCOPIC EXAMINATION: Each fallopian tube segment has a completely transected lumen and is free of significant inflammation. CONTINUED ON NEXT PAGE RUN DATE: 12/23/18 [facility] *LIVE* PAGE 2 RUN TIME: 748 Specimen Inquiry RUN USER: INTERFACE SPEC #: [id number] PATIENT: BRIGHT NO #[id number] (Sharon dye) POST-OP DIAGNOSIS Delivered PRE-OP DIAGNOSIS , 40 weeks, term intrauterine Signed SIGNATURE ON FILE Isha Landeros MD 12/23/18 0749 END OF REPORT CBC W/AUTO [id number] 19:52:00* Test Item Value Reference Range Interpretation Comme nts WHITE BLOOD CELL (test code = WBC) 10.46 x10 3/uL 4.5-11.0 N RED BLOOD CELL (test code = RBC) 3.12 x10 6/uL 3.54-5.02 L HEMOGLOBIN (test code = HGB) 9.2 g/dL 11.0-15.0 L HEMATOCRIT (test code = HCT) 27.6 % 33.0-45.0 L MEAN CELL VOLUME (test code = MCV) 88.5 fL 81.0-99.0 N MEAN CELL HGB (test code = MCH) 29.5 pg 27.0-33.0 N MEAN CELL HGB CONCETRATION (test code = MCHC) 33.3 g/dL 33.0-37.0 N RED CELL DISTRIBUTION WIDTH CV (test code = RDW) 14.4 % 11.5-14.5 N RED CELL DISTRIBUTION WIDTH SD (test code = RDW-SD) 46.1 fL 37.0-54.0 N PLATELET COUNT (test code = PLT) 211 x10 3/uL 150-400 N MEAN PLATELET VOLUME (test code = MPV) 10.4 fL 7.0-9.0 H NEUTROPHIL % (test code = NT%) 81.1 % 56.0-77.0 H IMMATURE GRANULOCYTE % (test code = IG%) 0.6 % 0.0-2.0 N LYMPHOCYTE % (test code = LY%) 10.6 % 14.0-32.0 L MONOCYTE % (test code = MO%) 6.6 % 4.8-9.0 N EOSINOPHIL % (test code = EO%) 0.8 % 0.3-3.7 N BASOPHIL % (test code = BA%) 0.3 % 0.0-2.0 N NUCLEATED RBC % (test code = NRBC%) 0.0 % 0-0 N NEUTROPHIL # (test code = NT#) 8.49 x10 3/uL 2.0-7.6 H IMMATURE GRANULOCYTE # (test code = IG#) 0.06 x10 3/uL 0.00-0.03 H LYMPHOCYTE # (test code = LY#) 1.11 x10 3/uL 1.0-3.8 N MONOCYTE # (test code = MO#) 0.69 x10 3/uL 0.1-0.8 N EOSINOPHIL # (test code = EO#) 0.08 x10 3/uL 0.0-0.2 N BASOPHIL # (test code = BA#) 0.03 x10 3/uL 0.0-0.2 N NUCLEATED RBC # (test code = NRBC#) 0.00 x10 3/uL 0.0-0.1 N MANUAL DIFF REQUIRED (test code = MDIFF) NO COMMENTS: POD #1 and #2COMPREHENSIVE METABOLIC [id number] 07:46:00* Test Item Value Reference Range Interpretation Comme nts SODIUM (test code = NA) 138 mEq/L 134-147 N POTASSIUM (test code = K) 3.7 mEq/L 3.4-5.0 N CHLORIDE (test code = CL) 110 mEq/L 100-108 H CARBON DIOXIDE (test code = CO2) 21 mEq/L 21-33 N ANION GAP (test code = GAP) 11 0-20 N GLUCOSE (test code = GLU) 76 mg/dL 70-110 N BLOOD UREA NITROGEN (test code = BUN) 9 mg/dL 7-18 N GLOMERULAR FILTRATION RATE (test code = GFR) 115.9 105-110 H Units of measure = ml/min/1.73 m2 CREATININE (test code = CREAT) 0.6 mg/dL 0.6-1.3 N TOTAL PROTEIN (test code = PROT) 5.0 g/dL 6.4-8.2 L ALBUMIN (test code = ALB) 1.90 g/dL 3.4-5.0 L CALCIUM (test code = CA) 7.9 mg/dL 8.0-10.5 L BILIRUBIN TOTAL (test code = BILT) 0.5 MG/DL <1.5 N SGOT/AST (test code = AST) 27 IUnit/L 15-37 N SGPT/ALT (test code = ALT) 15 IUnit/L 15-65 N ALKALINE PHOSPHATASE TOTAL (test code = ALKP) 70 IUnit/L 20-125 N COMMENTS: POD #1CBC W/AUTO [id number] 07:20:00* Test Item Value Reference Range Interpretation Comme nts WHITE BLOOD CELL (test code = WBC) 13.27 x10 3/uL 4.5-11.0 H RED BLOOD CELL (test code = RBC) 3.16 x10 6/uL 3.54-5.02 L HEMOGLOBIN (test code = HGB) 9.3 g/dL 11.0-15.0 L HEMATOCRIT (test code = HCT) 27.8 % 33.0-45.0 L MEAN CELL VOLUME (test code = MCV) 88.0 fL 81.0-99.0 N MEAN CELL HGB (test code = MCH) 29.4 pg 27.0-33.0 N MEAN CELL HGB CONCETRATION (test code = MCHC) 33.5 g/dL 33.0-37.0 N RED CELL DISTRIBUTION WIDTH CV (test code = RDW) 14.3 % 11.5-14.5 N RED CELL DISTRIBUTION WIDTH SD (test code = RDW-SD) 45.3 fL 37.0-54.0 N PLATELET COUNT (test code = PLT) 196 x10 3/uL 150-400 N MEAN PLATELET VOLUME (test code = MPV) 11.7 fL 7.0-9.0 H NEUTROPHIL % (test code = NT%) 81.8 % 56.0-77.0 H IMMATURE GRANULOCYTE % (test code = IG%) 0.5 % 0.0-2.0 N LYMPHOCYTE % (test code = LY%) 8.4 % 14.0-32.0 L MONOCYTE % (test code = MO%) 8.7 % 4.8-9.0 N EOSINOPHIL % (test code = EO%) 0.2 % 0.3-3.7 L BASOPHIL % (test code = BA%) 0.4 % 0.0-2.0 N NUCLEATED RBC % (test code = NRBC%) 0.0 % 0-0 N NEUTROPHIL # (test code = NT#) 10.85 x10 3/uL 2.0-7.6 H IMMATURE GRANULOCYTE # (test code = IG#) 0.07 x10 3/uL 0.00-0.03 H LYMPHOCYTE # (test code = LY#) 1.11 x10 3/uL 1.0-3.8 N MONOCYTE # (test code = MO#) 1.16 x10 3/uL 0.1-0.8 H EOSINOPHIL # (test code = EO#) 0.03 x10 3/uL 0.0-0.2 N BASOPHIL # (test code = BA#) 0.05 x10 3/uL 0.0-0.2 N NUCLEATED RBC # (test code = NRBC#) 0.00 x10 3/uL 0.0-0.1 N MANUAL DIFF REQUIRED (test code = MDIFF) NO COMMENTS: POD #1 and #2RAPID PLASMA [id number] 10:51:00* Test Item Value Reference Range Interpretation Comme nts RAPID PLASMA REAGIN (test co de = RPR) NONREACTIVE NONREACTIVE AG HEPATITIS B [id number] 10:51:00* Test Item Value Reference Range Interpretation Comme nts AG HEPATITIS B SURFACE (test code = HBSAG) NON REACTIVE INDEX NonReactive AB HIV 1 10:51:00* Test Item Value Reference Range Interpretation Comme nts AB HIV 1 2 (test code = KUP11VY) NONREACTIVE INDEX NONREACTIVE RAPID PLASMA [id number] 15:54:00* Test Item Value Reference Range Interpretation Comme nts RAPID PLASMA REAGIN (test code = RPR) NONREACTI VE AG HEPATITIS B [id number] 15:54:00* Test Item Value Reference Range Interpretation Comme nts AG HEPATITIS B SURFACE (test code = HBSAG) NON REACTIVE INDEX NonReactive AB HIV 1 15:54:00* Test Item Value Reference Range Interpretation Comme nts AB HIV 1 2 (test code = DFB54XW) NONREACTIVE INDEX NONREACTIVE RAPID PLASMA [id number] 13:47:00* Test Item Value Reference Range Interpretation Comme nts RAPID PLASMA REAGIN (test code = RPR) NONREACTI VE AG HEPATITIS B [id number] 13:47:00* Test Item Value Reference Range Interpretation Comme nts AG HEPATITIS B SURFACE (test code = HBSAG) NON REACTIVE INDEX NonReactive AB HIV 1 13:47:00* Test Item Value Reference Range Interpretation Comme nts AB HIV 1 2 (test code = [id number]) INDEX NONREACTIVE RAPID PLASMA [id number] 13:47:00* Test Item Value Reference Range Interpretation Comme nts RAPID PLASMA REAGIN (test code = RPR) NONREACTI VE AG HEPATITIS B [id number] 13:47:00* Test Item Value Reference Range Interpretation Comme nts AG HEPATITIS B SURFACE (test code = HBSAG) NON REACTIVE INDEX NonReactive AB HIV 1 13:47:00* Test Item Value Reference Range Interpretation Comme nts AB HIV 1 2 (test code = [id number]) INDEX NONREACTIVE CBC W/AUTO [id number] 13:15:00* Test Item Value Reference Range Interpretation Comme nts WHITE BLOOD CELL (test code = WBC) 10.92 x10 3/uL 4.5-11.0 N RED BLOOD CELL (test code = RBC) 3.59 x10 6/uL 3.54-5.02 N HEMOGLOBIN (test code = HGB) 10.5 g/dL 11.0-15.0 L HEMATOCRIT (test code = HCT) 31.3 % 33.0-45.0 L MEAN CELL VOLUME (test code = MCV) 87.2 fL 81.0-99.0 N MEAN CELL HGB (test code = MCH) 29.2 pg 27.0-33.0 N MEAN CELL HGB CONCETRATION (test code = MCHC) 33.5 g/dL 33.0-37.0 N RED CELL DISTRIBUTION WIDTH CV (test code = RDW) 14.0 % 11.5-14.5 N RED CELL DISTRIBUTION WIDTH SD (test code = RDW-SD) 43.8 fL 37.0-54.0 N PLATELET COUNT (test code = PLT) 191 x10 3/uL 150-400 N MEAN PLATELET VOLUME (test code = MPV) 11.7 fL 7.0-9.0 H NEUTROPHIL % (test code = NT%) 78.4 % 56.0-77.0 H IMMATURE GRANULOCYTE % (test code = IG%) 1.2 % 0.0-2.0 N LYMPHOCYTE % (test code = LY%) 11.5 % 14.0-32.0 L MONOCYTE % (test code = MO%) 7.7 % 4.8-9.0 N EOSINOPHIL % (test code = EO%) 1.0 % 0.3-3.7 N BASOPHIL % (test code = BA%) 0.2 % 0.0-2.0 N NUCLEATED RBC % (test code = NRBC%) 0.0 % 0-0 N NEUTROPHIL # (test code = NT#) 8.56 x10 3/uL 2.0-7.6 H IMMATURE GRANULOCYTE # (test code = IG#) 0.13 x10 3/uL 0.00-0.03 H LYMPHOCYTE # (test code = LY#) 1.26 x10 3/uL 1.0-3.8 N MONOCYTE # (test code = MO#) 0.84 x10 3/uL 0.1-0.8 H EOSINOPHIL # (test code = EO#) 0.11 x10 3/uL 0.0-0.2 N BASOPHIL # (test code = BA#) 0.02 x10 3/uL 0.0-0.2 N NUCLEATED RBC # (test code = NRBC#) 0.00 x10 3/uL 0.0-0.1 N MANUAL DIFF REQUIRED (test code = MDIFF) NO AMNISURE (ROM) [id number] 13:17:00* Test Item Value Reference Range Interpretation Comme nts AMNISURE (ROM) TEST (test code = AMNI) NEGATIVE NEGATIVE OPENED: 9 Notes Date/Time Note Provider Source 2024-03-23 09:03:40 Chief Complaint Patient presents with Anemia Menstrual Problem Heavy periods Marce Reza MA Examination chaperoned by Marce Reza MA. [facility] 2024-03-20 09:35:42 Chief Complaint Patient presents with Hospital F/U Patient was admitted to the hospital on 12/07 and discharged on 12/09/23 for anemia. Harvey Bates MA [facility] 2023-05-03 13:47:41 Chief Complaint Patient presents with Consultation Pt states she has hx of low iron States she was refereed to dishing machine operator because of heavy cycles. Was also referred to a press machine operator, she was told it was not due to period. State she is having pain with intercourse, dizziness, hair loss. Karen Fitzgerald CMA II [facility] 2022-10-05 18:07:00 [facility]) Hospitalist Discharge Summary REPORT#:[id number] REPORT STATUS: Signed DATE:10/05/22 TIME:1806 PATIENT: BRIGHT LEWIS UNIT #: [id number] ROOM/BED: [address] : [address] AGE: 37 SEX: F ATTEND: Sb Brandon MD ADM AUTHOR: eJnnifer Matt * ALL edits or amendments must be made on the electronic/computer document * Jennifer Matt 10/05/221806: General Information Date of admission: Observation Start Date: 10/05/22 Date of admission: 10/05/22 Discharge date: 10/05/22 Discharge diagnosis: Acute on chronic iron deficiency anemia Menorrhagia Hospital course: 37 y/o female with hx of chronic anemia due to menorrhagia was admitted to the hospital for acute on chronic iron deficiency anemia. Pt has her lab records with her with noted Hgb 6.9, pt is a Rastafarian and declined blood products. Iron level was 13 here, will transfuse Ferrlecit. Pt has already been given a rx for oral iron supplementation as well as referrals to Gynecology and Hematology for follow up. Will place discharge order with parameter to discharge home after completion of iron infusion. Med Rec Med Rec Discharge meds: Continue taking these medications: FERROUS FUMARATE (HEMOCYTE) 324 MG (106 MG IRON) TAB 324 MILLIGRAM ORAL DAILY. Qty = 30 Objective VS/I O Last Documented: Result Date Time Pulse Ox 100 10/05 1705 B/P 114/71 10/05 1705 B/P Mean 85 10/05 1705 O2 Delivery Room air 10/05 1705 Temp 98.4 10/05 1705 Pulse 104 10/05 1705 Resp 17 10/05 1705 General appearance: alert, awake, no acute distress Head/Eyes: atraumatic, normocephalic ENT: moist mucosal membranes, normal dentition Cardiovascular: normal heart sounds, regular rate rhythm Respiratory: symmetric expansion, no distress Abdomen: non-tender, soft Extremities: moves all, no edema Neuro/LINE CREWMAN: alert, normal speech Psychiatry: normal affect, normal mood Results Findings/Data: Laboratory Tests: 10/05 1716 Chemistry Iron (50 - 170 mcG/DL) 13 L Discharge Instructions PCP PCP follow-up: PCP: Scott Castro MD Discharge to: Home/Self Care Additional Discharge Routines: PCP Follow-Up Diet: Regular Discharge management: face to face encounter, discharge time 32 minutes Follow-up Appointments PCP follow-up: PCP: Clary Gallego INSURANCE UNDERWRITER SALES PCP follow up timeframe: In 5 days Special instructions: Monitor H/H, iron Follow up with gynecology and hematology Joao Mercado 10/06/22 1409: Attestations Physician Attestation Agree w/findings plan: Appreciate note from INSURANCE UNDERWRITER SALES Agree with the history and physical findings Lab works noted Imaging noted as well Findings were discussed with the LYN and Staff at 1828 at 1409 RPT #: [id number] END OF REPORT [facility] 2022-10-05 17:35:00 [facility] ([facility]) Hospitalist History Physical REPORT#:[id number] REPORT STATUS: Signed DATE:10/05/22 TIME:7067 PATIENT: BRIGHT LEWIS UNIT #: [id number] ROOM/BED: [facility] : 86 AGE: 37 SEX: F ATTEND: Sb Brandon MD ADM AUTHOR: Jennifer Matt * ALL edits or amendments must be made on the electronic/computer document * Jennifer Matt 10/05/22 1735: History of Present Illness HPI Chief complaint: fatigue HPI: 37 y/o female with hx of chronic anemia due to menorrhagia was sent from her PCP 's office for iron infusion. Pt was seen by her PCP and found to have a Hgb of 6.9. Pt is a Rastafarian and declined blood products, was sent here for iron infusion. Pt states she has been having some fatigue and lightheadedness for a few days. Denies any chest pain, palpitations or SOB. She is not currently on her cycle and is not on any OCPs or iron supplementation. In the ED, iron level noted to be 13. Plan for to admit for observation for iron infusion. History Past Medical Surgical Hx Additional medical history: MVP Family History Additional family history: reviewed, noncontributory Social History Smoking status for patients 13 years old or older: Never Smoker Medication/Allergy-Vaccine Hx Allergies: Coded Allergies: No Known Allergies (10/05/22) Review of Systems Constitutional: Reports: fatigue. Denies: fever. Skin: Denies: bruising, rash. ENT: Denies: nasal congestion, sore throat. Respiratory: Denies: productive cough (sputum), SOB. Cardiovascular: Denies: chest pain, palpitations. GI: Denies: nausea, vomiting. : Denies: dysuria, hematuria. Musculoskeletal: Denies: extremity pain, extremity swelling. Neuro: Reports: lightheaded. Denies: syncope. OBJECTIVE VS/I O: Vital Signs Date Temp Pulse Resp B/P B/P Mean Pulse Ox FiO2 10/05 98.4 104 17 114/71 85 100 Last Documented: Result Date Time Pulse Ox 100 10/05 1706 B/P 114/71 10/05 1706 B/P Mean 85 10/05 1706 O2 Delivery Room air 10/05 1705 Temp 98.4 10/05 170 Pulse 104 10/05 1706 Resp 17 10/05 170 Patient Weight and BMI Weight (kg): 48.636 BMI: 20.3 Medications: Active Meds + DC'd Last 24 Hrs Acetaminophen (TYLENOL) 650 MG Q4H PRN PRN PO Ferric Sodium Gluconate Complex (FERRLECIT) 125 MG ONCE ONE IV Sodium Chloride (SODIUM CHLORIDE 0.9%) 100 ML Ondansetron HCl (ZOFRAN) 4 MG Q4H PRN PRN IV General appearance: alert, awake, no acute distress Head/Eyes: atraumatic, normocephalic ENT: moist mucosal membranes, normal dentition Cardiovascular: normal heart sounds, regular rate rhythm Respiratory: symmetric expansion, no distress Abdomen: non-tender, soft Extremities: moves all, no edema Neuro/LINE CREWMAN: alert, normal speech Psychiatry: normal affect, normal mood Results Findings/Data: Laboratory Tests: 10/05 1716 Chemistry Iron (50 - 170 mcG/DL) 13 L Diagnosis, Assessment Plan Free Text A P: 37 y/o female with hx of chronic anemia due to menorrhagia admitted to the hospital for acute on chronic iron deficiency anemia. Pt has her records with noted Hgb 6.9, pt is a Rastafarian and declined blood products. Iron level is 13 here, will transfuse Ferrlecit and plan to discharge home after infusion with PCP follow up. Pt has already been given follow up info for Gynecology and Hematology. Joao Mercado 10/06/22 1408: Attestations Physician Attestation Agree w/findings plan: Appreciate note from INSURANCE UNDERWRITER SALES Agree with the history and physical findings Lab works noted Imaging noted as well Findings were discussed with the LYN and Staff at 1825 at 1409 RPT #: [id number] END OF REPORT [facility] 2022-10-05 17:04:00 [facility] ([facility]) EMERGENCY PROVIDER REPORT REPORT#:[id number] REPORT STATUS: Signed DATE:10/05/22 TIME:1703 PATIENT: BRIGHT LEWIS UNIT #: [id number] [facility] AGE: 37 SEX: F PCP PHYS: Scott Castro MD SERVICE AUTHOR: Rizwana Neal INSURANCE UNDERWRITER SALES * ALL edits or amendments must be made on the electronic/computer document * Rizwana Neal 10/05/22 1704: HPI-Dizziness/Weakness Free Text HPI Notes Free Text HPI Notes 37-year-old female presents to ED from outside [facility] clinic for a hemoglobin of 6.9. Patient reports history of heavy menstrual cycles that last 4 days. Last period was on 09/11-09/15. Patient was sent over by Dr. To for admission for iron transfusion. She reports fatigue without chest pain, shortness of breath, dyspnea exertion or palpitations. Patient is a [employer]ar[employer] and is declining blood products. She is not currently bleeding General Confirmed Patient Yes Initial Greet Date/Time 10/05/22 1700 Presentation Chief Complaint Weakness, generalized Hx Obtained From Patient, Prior medical records Associated with Reports: Fatigue, Weakness. Denies: Altered sensation, Anxiety, Ataxia, Balance problem, Bladder incontinence, Bleeding, Chills, Depression, Syncope, Tinnitus, Visual disturbance. Exacerbated by Nothing Relieved by Nothing Context /Sexual Hx Last Menstrual Period 09/11/22 Review of Systems ROS Statements All systems rev neg except as marked. Past Medical History - Adult Stated Complaint LOW HEMOGLOBIN Additional Medical History MVP Past Surgical History: Reports: . Physical Exam Vital Signs Vital Signs First Documented: Result Date Time Pulse Ox 100 10/05 1706 B/P 114/71 10/05 1706 B/P Mean 85 10/05 1706 O2 Delivery Room air 10/05 1705 Temp 36.9 10/05 170 Pulse 104 10/05 1706 Resp 17 10/05 170 Last Documented: Result Date Time Pulse Ox 100 10/05 1706 B/P 114/71 10/05 1706 B/P Mean 85 10/05 170 O2 Delivery Room air 10/05 1705 Temp 36.9 10/05 170 Pulse 104 10/05 1706 Resp 17 10/05 170 Review of Vital Signs Reviewed Free Text PE Notes Free Text PE Notes General/Const: Awake, Alert, No acute distress, Well appearing, Well hydrated, MS Head: Atraumatic, Normocephalic Eyes Atraumatic: EOMI, No nystagmus, No periorbital swelling, No scleral icterus Ears/Nose/Throat: Atraumatic, Airway patent, Mucous membranes moist, Pharynx NL, No trismus MS Neck: Atraumatic, Supple, No meningismus, Full range of motion Respiratory/Chest: Atraumatic, Breath sounds NL, Breath sounds = bilat, No respiratory distress Cardiovascular: Heart rate NL, Regular rhythm, Cap refill not delayed, Peripheral circulation NL Abdomen/GI: Atraumatic, Soft, Non-tender, No distention Back: Atraumatic, Full range of motion, Non-tender Skin: Skin Atraumatic, Color NL, No rash, Warm, Dry, Intact, Turgor NL, No swelling Neurologic: Oriented X3, Speech NL, No motor deficits, Cerebellar NL, Memory NL, Gait NL Psychiatric: Affect NL, Mood NL, Cognitive function NL, Judgment/insight NL, Thought content NL Interpretation Diagnostics Lab Results Interpretation Results Laboratory Tests: 10/05 1716 Chemistry Iron (50 - 170 mcG/DL) 13 L TIBC (260 - 445 mcg/dL) 478 H Ferritin (11.0 - 306.8 ng/mL) 2.3 L Microbiology: Date/Time Procedure - Status Source Growth 10/06 1715 MRSA Screen - COLB NASAL Re-Evaluation MDM ED Course Patient Course Stable Additional Hx/Info Source Spouse Notes Reviewed Prior ED visit Safety Concerns Patient is safe Differential Diagnosis )( Differential Diagnosis Anemia Findings/Social Determinants Presentation Chronic Severity Evaluation Serious condition Diagnosis Appears Mild Patient Discharge Departure Vital Signs/Condition Vital Signs First Documented: Result Date Time Pulse Ox 100 10/05 1706 B/P 114/71 10/05 1706 B/P Mean 85 10/05 1706 O2 Delivery Room air 10/05 1706 Temp 36.9 10/05 1706 Pulse 104 10/05 1706 Resp 17 10/05 1706 Last Documented: Result Date Time Pulse Ox 100 10/05 1706 B/P 114/71 10/05 1706 B/P Mean 85 10/05 1706 O2 Delivery Room air 10/05 1706 Temp 36.9 10/05 1706 Pulse 104 10/05 1706 Resp 17 10/05 1706 All vital signs available at the time of this entry have been reviewed. Clinical Impression Clinical Impression Primary Impression: Anemia Disposition Decision Hospitalize Hosp Physician Name Sb Brandon MD Hosp Physician Hospitalist Request Time 1708 Request Date 10/05/22 )( Accepts Hospitalization Yes )( Reason for Hospitalization anemia )( Accepted Time 1711 )( Accepted Date 10/05/22 Call Information will see patient Discharge/Care Plan Counseled Regarding Diagnosis, Need for admission Admit Note I have spoken with the patient and/or caregivers. I have explained the patient's condition, diagnoses and treatment plan based on the information available to me at this time. I have answered the patient's and/or caregiver's questions and addressed any concerns. The patient and/or caregivers have as good an understanding of the patient's diagnosis, condition and treatment plan as can be expected at this point. The patient has been stabilized within the capability of the emergency department. The patient will be transported for further care and management or will be moved to an observation or inpatient service. I have communicated with the staff or medical practitioner taking over this patient's care. Anais Ruff 10/07/22 0933: Past Medical History - Adult Allergies Coded Allergies: morphine (Severe, RAHS 06/15/13) promethazine (From [facility]) (Severe, CONVULSIONS 06/15/13) Patient Discharge Departure Supervising Physician Note MidLv/Doc Saw Pt 1 I have personally seen the patient and I evaluated the patient along with involvement of the PA/INSURANCE UNDERWRITER SALES. I agree with the PA/hvac design mechanical engineer findings and plan. I have performed all aspects of MDM as documented including: evaluation of the patient/ patient's condition(s), review and analysis of available data, and determination of risk of patient management decisions. at 2124 at 0933 RPT #: [id number] END OF REPORT [facility] 2022-10-05 14:55:00 [facility] ([facility]) EMERGENCY PROVIDER REPORT REPORT#:[id number] REPORT STATUS: Signed DATE:10/05/22 TIME:1454 PATIENT: BRIGHT LEWIS UNIT #: [id number] ROOM/BED: : 86 AGE: 37 SEX: F PCP PHYS: Anais Ruff MD SERVICE AUTHOR: Skylar Ng * ALL edits or amendments must be made on the electronic/computer document * Skylar Ng 10/05/22 1455: HPI-General Illness Free Text HPI Notes Free Text HPI Notes 37-year-old female presents to ED from outside [facility] clinic for a hemoglobin of 6.9. Patient reports history of heavy menstrual cycles that last 4 days. Last period was on 09/11-09/15. She reports fatigue without chest pain, shortness of breath, dyspnea exertion or palpitations. Patient is a [employer]ar[employer] and is declining blood products. She is not currently bleeding General Confirmed Patient Yes Initial Greet Date/Time 10/05/22 1415 Presentation Chief Complaint __ (Hgb 6.9) Hx Obtained From Patient, Spouse, Legal Investigator Sudden in Onset? No Review of Systems ROS Statements All systems rev neg except as marked. Free Text ROS Notes Free Text ROS Notes Per HPI Past Medical History - Adult Stated Complaint LOW HEMOGLOBIN 6.9,REFER BY DR GALLEGO Allergies Coded Allergies: No Known Allergies (10/05/22) Calculated Suicide Risk (nurs) No risk Pt reports no significant: Family history, Social history Additional Medical History MVP Past Surgical History: Reports: . Smoking status for patients 13 years old or older: Never Smoker Physical Exam Vital Signs Vital Signs First Documented: Result Date Time Pulse Ox 98 10/05 1415 B/P 123/72 10/05 1415 B/P Mean 89 10/05 1415 O2 Delivery Room air 10/05 1415 Temp 99.4 10/05 1415 Pulse 97 10/05 1415 Resp 17 10/05 1415 Last Documented: Result Date Time Pulse Ox 98 10/05 1415 B/P 123/72 10/05 1415 B/P Mean 89 10/05 1415 O2 Delivery Room air 10/05 1415 Temp 99.4 10/05 1415 Pulse 97 10/05 1415 Resp 17 10/05 1415 Review of Vital Signs Reviewed Physical Exam General/Const General/Const Awake, Alert, No acute distress Eyes Eyes PERRL, EOMI, pale conjunctiva Ears/Nose/Throat Ears/Nose/Throat Airway patent, Mucous membranes moist, Pharynx NL MS Neck Neck Supple, No meningismus Resp/Chest Respiratory/Chest Breath sounds NL, Breath sounds = bilat, No respiratory distress, No rales, No rhonchi, No wheezing Cardiovascular Cardiovascular Heart rate NL, Regular rhythm, Heart sounds NL, No gallop, No murmurs, No rubs Abdomen/GI Abdomen/GI Soft, Non-tender Skin Skin slightly pale, no petechia or purpura Re-Evaluation MDM Free Text MDM Notes Free Text MDM Notes Spoke with patient and at length with the assistance of the crematorium operator regarding church preference and no blood products. Patient is anemic with a hemoglobin of 6.9. Since we are unable to provide blood products to improve her hemoglobin, patient will require outpatient hematology evaluation for possible iron infusions. We do not offer that service in the ED. In the interim, we will start patient on oral iron replacement. Explained this may take 6 to 8 weeks to reflect on her lab work. We will also refer patient to gynecology for menorrhagia work-up. She is currently hemodynamically stable and not requiring emergent intervention. Patient and are comfortable with the discharge plan. MDM-Complexity Severity/Chronicity Evaluation anemia 2/2 menorrhagia MDM-History/Test Information Independent Hx From/Why and interpretor, External Notes Reviewed outside labs reviewed with Hgb 6.9, normal Platelets and WBC MDM-Treatment/Evaluation Medications Recommendations Ferrous fumarate Patient Discharge Departure Vital Signs/Condition Vital Signs First Documented: Result Date Time Pulse Ox 98 10/05 1415 B/P 123/72 10/05 1415 B/P Mean 89 10/05 1415 O2 Delivery Room air 10/05 1415 Temp 99.4 10/05 1415 Pulse 97 10/05 1415 Resp 17 10/05 1415 Last Documented: Result Date Time Pulse Ox 98 10/05 1415 B/P 123/72 10/05 1415 B/P Mean 89 / 1415 O2 Delivery Room air 10/05 1415 Temp 99.4 10/05 1415 Pulse 97 10/05 1415 Resp 17 10/05 1415 All vital signs available at the time of this entry have been reviewed. Clinical Impression Clinical Impression Primary Impression: Anemia Disposition Decision Discharge )( Discharged to Home Yes )( Time 1500 )( Date 10/05/22 Discharge/Care Plan Counseled Regarding Diagnosis, Medication changes, Prescriptions, Need for follow-up, When to return to ED (Auto) Prescriptions Current Visit Scripts FERROUS FUMARATE (HEMOCYTE) 324 MG PO DAILY FERROUS FUMARATE (HEMOCYTE) 324 MG PO DAILY #30 TABS Prescriptions Reviewed Risks, Benefits, Alternative treatment Patient Instructions ED Anemia No Type Adult Additional Instructions Start iron replacement. Follow-up with hematology and gynecology. Discharge Note I have spoken with the patient and/or caregivers. I have explained the patient's condition, diagnoses and treatment plan based on the information available to me at this time. I have answered the patient's and/or caregiver's questions and addressed any concerns. The patient and/or caregivers have as good an understanding of the patient's diagnosis, condition and treatment plan as can be expected at this point. The vital signs have been stable. The patient's condition is stable and appropriate for discharge from the emergency department. The patient will pursue further outpatient evaluation with the primary care physician or other designated or consulting physician as outlined in the discharge instructions. The patient and/or caregivers are agreeable to this plan of care and follow-up instructions have been explained in detail. The patient and/or caregivers have received these instructions in written format and have expressed an understanding of the discharge instructions. The patient and/or caregivers are aware that any significant change in condition or worsening of symptoms should prompt an immediate return to this or the closest emergency department or a call to 911. Anais Ruff 10/05/22 1804: Re-Evaluation MDM Free Text MDM Notes Additional Text Pt presented hemodynamically stable with known anemia that has never been worked up. Referrals to outpatient hematology given, as well as referrals to CORRESPONDENCE COORDINATOR. Pt has been instructed to request outpatient iron infusion in infusion center. Patient Discharge Departure Discharge/Care Plan Referrals Provider Referral: Demetria Zayas MD Address: [id number] [place] [address] Provider Referral: Susie Bowles MD Address: [address] [facility] [address] [place] [address] Supervising Physician Note MidLv/Doc Saw Pt 1 I have personally seen the patient and I evaluated the patient along with involvement of the PA/INSURANCE UNDERWRITER SALES. I agree with the PA/hvac design mechanical engineer findings and plan. I have performed all aspects of MDM as documented including: evaluation of the patient/ patient's condition(s), review and analysis of available data, and determination of risk of patient management decisions. at 1502 at 4986 [facility] #: [id number] END OF REPORT [facility] 2018-12-23 07:35:00 [facility] ([facility]) OB Disch REPORT#:[id number] REPORT STATUS: Signed DATE:12/23/18 TIME: 734 PATIENT: BRIGHT NO UNIT #: [id number] ROOM/BED: [place] [address] : 86 AGE: 33 SEX: F ATTEND: Vaishali Michaels MD ADM AUTHOR: Vaishali Michaels MD * ALL edits or amendments must be made on the electronic/computer document * Subjective Subjective Admission EGA (wks/days): 39 weeks (1 day) EGA at delivery (wks/days): 39 weeks (1 day) Status/day: post operative Objective General VS: Vital Signs Date Temp Pulse Resp B/P B/P Mean Pulse Ox FiO2 12/22-12/23 36.7-37.3 67-94 14-17 104-107/56-66 Last Documented: Result Date Time B/P 107/56 12/23 0100 Temp 36.7 12/23 0100 Pulse 73 12/23 0100 Resp 14 12/23 0100 B/P Mean 102.0 12/20 1630 Patient Weight Weight (lb): 159 Weight (oz): Weight (kg): 72.121 Physical Exam Cardiac: normal rhythm Lungs: clear to auscultation Neuro: Exam: alert, oriented x3, normal speech Abdomen: post gravid, soft, no abnormal tenderness, no guarding, no rebound tenderness Incision site: well approximated edges, dry, no drainage, no inflammation Uterus: non-tender Fundus: non-tender Lochia: normal Episiotomy or laceration: none Vulva/Perineum: normal, no hematoma CVA tenderness: none Lower extremities: Edema: trace Results Findings/Data: Laboratory Tests: 12/22 1930 Hematology WBC (4.5 - 11.0 x10 3/uL) 10.46 RBC (3.54 - 5.02 x10 6/uL) 3.12 L Hgb (11.0 - 15.0 g/dL) 9.2 L Hct (33.0 - 45.0 %) 27.6 L MCV (81.0 - 99.0 fL) 88.5 MCH (27.0 - 33.0 pg) 29.5 MCHC (33.0 - 37.0 g/dL) 33.3 RDW (11.5 - 14.5 %) 14.4 Plt Count (150 - 400 x10 3/uL) 211 MPV (7.0 - 9.0 fL) 10.4 H Neut % (Auto) (56.0 - 77.0 %) 81.1 H Lymph % (Auto) (14.0 - 32.0 %) 10.6 L [place] % (Auto) (4.8 - 9.0 %) 6.6 Eos % (Auto) (0.3 - 3.7 %) 0.8 Baso % (Auto) (0.0 - 2.0 %) 0.3 Neut # (Auto) (2.0 - 7.6 x10 3/uL) 8.49 H Lymph # (Auto) (1.0 - 3.8 x10 3/uL) 1.11 [place] # (Auto) (0.1 - 0.8 x10 3/uL) 0.69 Eos # (Auto) (0.0 - 0.2 x10 3/uL) 0.08 Baso # (Auto) (0.0 - 0.2 x10 3/uL) 0.03 Abs Immat Gran (auto) (0.00 - 0.03 x10 3/uL) 0.06 H Add Manual Diff NO Immature Gran % (0.0 - 2.0 %) 0.6 Nucleated RBC % (0 - 0 %) 0.0 Nucleated RBCs # (Man) (0.0 - 0.1 x10 3/uL) 0.00 Discharge Summary Discharge Summary Date of admission: Date of admission: 12/20/18 Hospital course: repeat admit, epidural anesthesia, spinal anesthesia, nml postop/postpart care Baby A: status: live born Gender: male 1 minute: 8 5 minutes: 9 Plan: routine care, discharge today Instructions: routine instr sheet given, instr and warnings rev'd, specific instr as noted Diet: regular Activity and restrictions: up ad landon, may shower, pelvic rest, no intercourse for 6 wks, no driving Contraception discussed: abstinence for 4-6 weeks, will discuss at PP visit Discharge meds: Continue taking these medications: PNV WITH FE FUMARATE/FA () 1 EACH TAB 1 TABLET ORAL DAILY. Start taking the following new medications: IBUPROFEN (MOTRIN) 800 MG TAB 800 MILLIGRAM ORAL EVERY 8 HR NEEDED. as needed for ABDOMINAL CRAMPS Qty = 45 No Refills ACETAMINOPHEN/CODEINE (TYLENOL WITH CODEINE #3 300/30 MG) 300 MG-30 MG TAB 1 TABLET ORAL EVERY 6 HOURS NEEDED. as needed for ABDOMINAL CRAMPS Qty = 28 No Refills Prescriptions: on chart Consultation(s): Consultation performed: anesthesia Discharge condition: stable Discharge to: home Follow up in: 3 weeks at 0742 RPT #:[id number] END OF REPORT [facility] 2018-12-22 06:32:00 [facility] ([facility]) OB Postpart Progr Note REPORT#:[id number] REPORT STATUS: Signed DATE:12/22/18 TIME: 0632 PATIENT: BRIGHT NO UNIT #: [id number] ROOM/BED: [place] [id number] : 86 AGE: 33 SEX: F ATTEND: Vaishali Michaels MD ADM AUTHOR: Vaishali Michaels MD * ALL edits or amendments must be made on the electronic/computer document * Subjective Subjective EGA weeks/days: 39 weeks Status/Day: post operative (day 1) Objective Nursing Documentation Review Nursing Data: The data set between the solid lines has been imported from nursing documentation. Any exceptions have been noted below under Provider comments. Feeding preference: Provider comments on imported nursing data: [] General VS: Vital Signs: Date Time Temp Pulse Resp B/P B/P Pulse O2 O2 Flow FiO2 Mean Ox Delivery Rate 12/22 0010 16 12/22 0010 79 12/22 0010 36.9 12/22 0010 103/57 12/21 2044 18 12/21 2044 73 12/21 2044 36.8 12/21 2044 108/59 12/21 1600 16 12/21 1600 76 12/21 1600 36.9 12/21 1600 107/63 12/21 1200 16 12/21 1200 79 12/21 1200 36.8 12/21 1200 110/58 12/21 0800 16 12/21 0800 75 12/21 0800 37.6 12/21 0800 97/54 Patient Weight Weight (lb): 159 Weight (oz): Weight (kg): 72.121 Physical Exam Cardiac: normal sinus rhythm Lungs: clear to auscultation Neuro: Exam: alert, oriented x3, normal speech Abdomen: soft, no abnormal tenderness, no guarding, no rebound tenderness Incision site: well approximated edges, dry, no drainage, no inflammation Fundus: firm Lochia: normal Lacerations: Perineal laceration(s): None Episiotomy or laceration: none Vulva/Perineum: normal, no hematoma CVA tenderness: none Lower extremities: Edema: trace Diagnosis, Assessment Plan Diagnosis, Assessment Plan Assessment: nml progress Plan: routine care, discharge tomorrow Consultation(s): Consultation: anesthesia at 0633 RPT #:[id number] END OF REPORT [facility] 2018-12-21 09:22:00 [facility] ([facility]) OB Postpart Progr Note REPORT#:[id number] REPORT STATUS: Signed DATE:12/21/18 TIME: 921 PATIENT: BRIGHT NO UNIT #: [id number] ROOM/BED: [place] [id number] : 86 AGE: 33 SEX: F ATTEND: Vaishali Michaels MD ADM AUTHOR: Vaishali Michaels MD * ALL edits or amendments must be made on the electronic/computer document * Subjective Subjective EGA weeks/days: 39 weeks Status/Day: post operative (day 1) Objective General VS: Vital Signs: Date Time Temp Pulse Resp B/P B/P Pulse O2 O2 Flow FiO2 Mean Ox Delivery Rate 12/22 443 16 12/214 65 12/21 044 36.7 12/214 107/61 12/21 0006 18 12/21 0006 69 12/21 000 37.1 12/21 000 101/55 12/20 2020 16 12/20 2020 75 12/20 2020 37.2 12/20 2020 108/58 12/20 1710 16 12/20 1710 67 12/20 1710 37.2 12/20 1710 137/67 12/20 1630 67 12/20 1630 102.0 12/20 1630 147/74 12/20 1615 68 12/20 1615 101.0 12/20 1615 148/75 12/20 1600 65 12/20 1600 101.0 12/20 1600 147/71 12/20 1545 69 12/20 1545 99.0 12/20 1545 144/70 12/20 1515 16 12/20 1500 16 12/20 1445 15 12/20 1430 16 12/20 1430 36.6 Patient Weight Weight (lb): 159 Weight (oz): Weight (kg): 72.121 Physical Exam Cardiac: normal sinus rhythm Lungs: clear to auscultation Neuro: Exam: alert, oriented x3, normal speech Abdomen: soft, no abnormal tenderness, no guarding, no rebound tenderness Incision site: well approximated edges, dry, no drainage, no inflammation Fundus: firm Lochia: normal Lacerations: Perineal laceration(s): None Episiotomy or laceration: none Vulva/Perineum: normal, no hematoma CVA tenderness: none Lower extremities: Edema: trace Result Findings/Data: Laboratory Tests: 12/22 443 Chemistry Sodium (134 - 147 mEq/L) 138 Potassium (3.4 - 5.0 mEq/L) 3.7 Chloride (100 - 108 mEq/L) 110 H Carbon Dioxide (21 - 33 mEq/L) 21 Anion Gap (0 - 20) 11 BUN (7 - 18 mg/dL) 9 Creatinine (0.6 - 1.3 mg/dL) 0.6 Glomerular Filtr Rate (105 - 110) 115.9 H Glucose (70 - 110 mg/dL) 76 Calcium (8.0 - 10.5 mg/dL) 7.9 L Total Bilirubin (<1.5 MG/DL) 0.5 AST (15 - 37 IUnit/L) 27 ALT (15 - 65 IUnit/L) 15 Total Alk Phosphatase (20 - 125 IUnit/L) 70 Total Protein (6.4 - 8.2 g/dL) 5.0 L Albumin (3.4 - 5.0 g/dL) 1.90 L Hematology WBC (4.5 - 11.0 x10 3/uL) 13.27 H RBC (3.54 - 5.02 x10 6/uL) 3.16 L Hgb (11.0 - 15.0 g/dL) 9.3 L Hct (33.0 - 45.0 %) 27.8 L MCV (81.0 - 99.0 fL) 88.0 MCH (27.0 - 33.0 pg) 29.4 MCHC (33.0 - 37.0 g/dL) 33.5 RDW (11.5 - 14.5 %) 14.3 Plt Count (150 - 400 x10 3/uL) 196 MPV (7.0 - 9.0 fL) 11.7 H Neut % (Auto) (56.0 - 77.0 %) 81.8 H Lymph % (Auto) (14.0 - 32.0 %) 8.4 L [place] % (Auto) (4.8 - 9.0 %) 8.7 Eos % (Auto) (0.3 - 3.7 %) 0.2 L Baso % (Auto) (0.0 - 2.0 %) 0.4 Neut # (Auto) (2.0 - 7.6 x10 3/uL) 10.85 H Lymph # (Auto) (1.0 - 3.8 x10 3/uL) 1.11 [place] # (Auto) (0.1 - 0.8 x10 3/uL) 1.16 H Eos # (Auto) (0.0 - 0.2 x10 3/uL) 0.03 Baso # (Auto) (0.0 - 0.2 x10 3/uL) 0.05 Abs Immat Gran (auto) (0.00 - 0.03 x10 3/uL) 0.07 H Add Manual Diff NO Immature Gran % (0.0 - 2.0 %) 0.5 Nucleated RBC % (0 - 0 %) 0.0 Nucleated RBCs # (Man) (0.0 - 0.1 x10 3/uL) 0.00 Diagnosis, Assessment Plan Diagnosis, Assessment Plan Assessment: nml progress Plan: routine care, discharge tomorrow Consultation(s): Consultation: anesthesia Plan discussed with: patient, family at 0924 RPT #:[id number] END OF REPORT [facility] 2018-12-21 06:19:00 [facility]) Pain Management Progress Note REPORT#:[id number] REPORT STATUS: Signed DATE:12/21/18 TIME: 618 PATIENT: BRIGHT NO UNIT #: [id number] ROOM/BED: [place] [id number] : 86 AGE: 33 SEX: F ATTEND: Vaishali Michaels MD ADM AUTHOR: Bandar Reynoso MD * ALL edits or amendments must be made on the electronic/computer document * Diagnosis, Assessment Plan Free text A P: Pain Management Rounds: Patient seen and examined Epidural in place and working well No side effects noted for d/c of cea this AM at 0619 RPT #:[id number] END OF REPORT [facility] 2018-12-20 18:43:00 [id number] [address] PATIENT NAME: BRIGHT NO ADMIT DATE: 12/20/18 ACCOUNT NO: [id number] ROOM NO: [facility] AGE: 33 REPORT TYPE: OPERATIVE REPORT SEX: F ADMITTING PHYSICIAN:Vaishali Michaels MD ATTENDING PHYSICIAN:Vaishali Michaels MD OPERATION DATE: 12/20/2018 START TIME: 13:28 p.m. PROCEDURE: Repeat low transverse section and bilateral tubal ligation. SURGEON: Xenia Tom MD. SOCIOCULTURAL ANTHROPOLOGY PROFESSOR: Bandar Freedman, Licensed Registry Rn. PREOPERATIVE DIAGNOSES: Single-intrauterine at 39 plus 1 weeks' gestational age with multiparity, desires tubal ligation. POSTOPERATIVE DIAGNOSES: Single intrauterine at 39 weeks' gestational age with multiparity, desires tubal ligation. ANESTHESIA: Combined spinal epidural. ESTIMATED BLOOD LOSS: 800 mL. IV FLUIDS: 2 liters. URINE OUTPUT: 150 mL SPECIMEN REMOVED: Cord, placental membranes, left and right fallopian tubes. FINDINGS: Viable female , weighing 3640 gm, Apgars 8 and 9, delivered atraumatically from cephalic presentation. Tubes and ovaries were grossly within normal limits bilaterally. Dense adhesions noted within the uterus, anterior abdominal wall and on the omentum. Filmy adhesions noted to lower uterine segment of uterus and the bladder. PROCEDURE IN DETAIL: The patient was taken to the operating room where combined spinal epidural was applied and found to be adequate. The patient was then prepped and draped in normal sterile fashion, placed in dorsal supine position. Pfannenstiel skin incision was then made with a scalpel. Incision was then carried down to the underlying layer of fascia with the Bovie. Fascia was then incised in midline and extended laterally with the Bovie. The superior aspect of the fascial incision was then grasped with 2 Brian clamps, elevated, tented up, and the rectus muscles dissected with the Bovie. Rectus muscles were then in the midline and entered sharply with a knife. Incision was extended inferiorly and superiorly. Peritoneum was identified, entered sharply PATIENT NAME: BRIGHT NO with the Metzenbaum scissors. The uterus was then noted to be adherent to the anterior abdominal wall. Using two large Luigi clamps, the uterus was then transected from the mid anterior abdominal wall and the stumps were then ligated with good hemostasis noted. The vesicouterine peritoneum was then grasped with smooth pickups, entered sharply with Metzenbaum scissors. The bladder flap was then created digitally. Bladder blade was then inserted. The lower uterine segment was then incised in a transverse fashion with the scalpel. Incision was extended laterally bluntly. The was then delivered atraumatically. Nose and mouth were suctioned with bulb suction. Cord was clamped and cut. Cord blood obtained. Placenta was then delivered with assistance. Uterus was then exteriorized and cleared of all clot and debris. Uterine incision was then repaired with Monocryl in a running interlocking fashion in 2 layers with good hemostasis noted. Surgicel was placed ____ anterior abdominal wall and the Surgicel was then transfixed with 0 Vicryl suture with good hemostasis noted. Attention was then turned to the tubes where a bilateral salpingectomy was performed using the LigaSure. The tubes were transected from the broad ligament with good hemostasis noted. This was repeated on the contralateral side with good hemostasis noted. The uterus was then returned to the abdomen. The incision was then reexamined and noted to be hemostatic. Interceed was placed anterior to the lower segment incision. Rectus muscles were then reapproximated with 0 Vicryl in a mattress stitch technique. Fascia was approximated with 0 Vicryl in running nonlocked fashion. Skin was closed with 4-0 Monocryl subcuticular closure. The patient tolerated the procedure well. Sponge, lap, and instrument count were correct x2. The patient was taken to Recovery room awake and in stable condition. Dictated By: Vaishali Michaels MD WT: OP:G.CASA/TAVIA/JAMES Conf#: [id number]/DID#: [id number] Authenticated by Vaishali Michaels MD On 01/04/2019 06:56:23 PM at 1856 PATIENT NAME: BRIGHT NO [facility] 2018-12-20 14:16:00 [facility] ([facility]) OB Admission / H P REPORT#:[id number] REPORT STATUS: Signed DATE:12/20/18 TIME: 1416 PATIENT: BRIGHT NO UNIT #: [id number] ROOM/BED: [place] [id number] : 86 AGE: 33 SEX: F ATTEND: Vaishali Michaels MD ADM AUTHOR: Vaishali Michaels MD * ALL edits or amendments must be made on the electronic/computer document * OB Admission H P Hx Allergies Coded Allergies: No Known Allergies (12/16/18) Objective General VS: Patient Weight Weight (lb): 159 Weight (oz): Weight (kg): 72.121 Physical Exam HEENT: normocephalic w/o injury Cardiac: regular rate and rhythm Lungs: clear to auscultation Breasts: deferred Neuro: Exam: alert, oriented x3, normal speech Abdomen: gravid, soft, no abnormal tenderness, no guarding, no rebound tenderness Uterine activity: Monitor: toco Pelvic exam: Pelvis clinically adequate: yes, inlet appears appropriate, pubic bone config appropr, no midpelvic contraction Vulvar lesions: none, no evidence herpetic les, no evidence of other STD Vagina: normal, non-septated, w/o apparent lesions Cervical/ exam: Dilatation (cm): 0 - closed Baby A: Baby A baseline: 140 bpm Baby A variability: moderate 6-25 bpm Baby A accelerations: 15 X 15 Baby A decelerations: none Baby A FHR category: category 1 Diagnosis, Assessment Plan Diagnosis, Assessment Plan Free Text A P: 33 yr old P2012 LMP: 03/21/18 EDC: 12/26/18 @ 39+1 weeks GA dated by LMP c/w sono presenting for scheduled CD. She has no complaints at this time. Denies ARAMBULA, Blurry vision, nausea, vomiting, abd pain, vaginal bleeding. +FM. No LOF. PNC complicated by: Hx of Mitral valve prolapse - Reports previous cardiology Eval and clearance previously for delivery. Previous CD x 2 - For repeat CD Abnormal GCT - GTT WNL. Declining blood Transfusion (church reasons) Blood refusal counselin09/02/18 Discussed the risks and benefits of accepting blood product transfusion. Discussed the risks and benefits of NOT accepting blood product transfusion. Discussed the risks and benefits of extracorporeal circulatory and salvage techniques. Consent was obtained with Spouse present. Patient understands that if clinically significant bleeding cannot be stopped, then the patient will eventually . Patient is aware that blood product refusal may result in organ or tissue damage or even . Patient adamantly refuses the blood component therapies, even if faced with . Patient realizes that with these restrictions, the care team may be forced to proceed more quickly to definitive procedures that have a chance of stopping the bleeding (bowel resection, delivery, hysterectomy, amputation, etc) ( this is due to the lack of a blood "buffer" that enables the treating team to replace the blood lost during preliminary attempts at hemostasis). Patient understands that he or she may reverse these restrictions at ANY time and accept blood. If this occurs, the care team will abide by all patient privacy standards and not discuss the acceptance of blood products in front of family or clergy without patient consent. Delivery plan: >/= 39 weeks OBhx: section x 2, SAB x 1 GynHx: /3-5. Denies Fibroids, cyst, STD's or abnormal paps MHx: Mitral Valve prolapse SurgHx: CD x 2 Family Hx: Denies. SHx: Denies Alcohol, Cigarette and illicit drug Use Meds: PNV Allergy: NKDA Vitals: Stable Gen: NAD HEENT: Normocephalic. CVS: S1S2 Lung: clear b/l Abd: Gravid, NT, ND Ext: No calf tenderness, No DVT signs, Trace Edema Pelvic: Normal external female genitalia, No lesions or masses in vulva, vagina or cervix. Labs: T S: A pos Antibody: Neg Hg Phenotype: AA H/H: 10.6/30.5-12/02/18 HIV: Neg HbsAg: Neg Rubella: Immune VZ: Immune RPR: NR GCT:140 GTT: 84/143/134/107 Imp: IUP @ 39+1 Weeks GA with above Issuesfor elective repeat CD abd BTL. Plan: Admit to labor and ddelivery NPO Ancef Consents. Assessment/Impression: previous C/S, for repeat Plan: Plan discussed with: patient, spouse/partner, nurse at 1831 RPT #:[id number] END OF REPORT [facility] 2018-12-20 14:16:00 [facility] ([facility]) OB Delivery Note REPORT#:[id number] REPORT STATUS: Signed DATE:12/20/18 TIME: 1416 PATIENT: BRIGHT NO UNIT #: [id number] ROOM/BED: [facility] : 86 AGE: 33 SEX: F ATTEND: Vaishali Michaels MD ADM AUTHOR: Vaishali Michaels MD * ALL edits or amendments must be made on the electronic/computer document * OB Delivery Pre-delivery GBS status: GBS status: negative Shattuck evaluation at delivery: NRP certified personnel Admission EGA (wks/days): 39 weeks (1 day) EGA at delivery (wks/days): 39 weeks (1 day) General VS: Last Documented: Result Date Time Pulse 67 12/20 1630 B/P Mean 102.0 12/20 1630 B/P 147/74 12/20 1630 Resp 16 12/20 1515 Temp 36.6 12/20 1430 Membranes: AROM ROM date: 12/20/18 Amniotic fluid: clear Baby A Information Baby A information Delivery date: 12/20/18 Delivery time: 1338 status: live born Wt of baby (grams): 3640 Gender: male 1 minute: 8 5 minutes: 9 Presentation: vertex ABG details Baby A Cord blood gases: not collected Nuchal cord Baby A Nuchal cord: triple Delivery section Abdominal incision: Pfannenstiel Primary indication: elective repeat , previous Priority: scheduled : : contraindicated Antibiotic prior to incision: 1 dose )(SCDs applied activated: Yes Incision: low transverse Hemorrhage: no Uterine scar: intact Consent: indication discussed, questions answered, pt consent to op delivery Mother's condition: mother stable 's condition: infant stable in room Op/Inv Proc Note - Brief )(Start date: 12/20/18 )(Start time: 1328 )( Procedure(s) performed: repeat low transverse c/s, bilateral tubal ligation ( salpingectomy) )( Primary Surgeon: Dr Michaels )( Photocopy Operator(s): [place] DORSEYA )( Pre-procedure diagnosis: SIUP @ 39+1 Weeks GA with multiparity desiring tubal ligation. )( Post-procedure diagnosis: same )(Technique/Procedure: see op note Anesthesia: combined spinal/epidural )( Estimated blood loss (ml): 800 )( Specimen removed/altered: cord, placenta, membranes, left and right tubes. )( Complications: none Drain(s): Stahl Tube(s): none Implant(s): none Fluids: 2000 Urine output: 150 )( Finding(s): Viable male weighing 3640g, apgars 8/9 delivered atraumatically from cephalic presentation. Tubes and ovaries grossly within normal limits bilaterally. Dense adhesions between uterus and anterior abdominal wall. Filmy adhesions between low uterine segment and bladder. Condition: stable Dictation number: [id number] at 1843 RPT #:[id number] END OF REPORT [facility] 2018-12-16 12:42:00 [facility] ([facility]) EMERGENCY PROVIDER REPORT REPORT#:[id number] REPORT STATUS: Signed DATE:12/16/18 TIME: 1242 PATIENT: BRIGHT NO UNIT #: [id number] ROOM/BED: [place] [id number] AGE: 33 SEX: F PCP PHYS: Vaishali Michaels MD SERVICE AUTHOR: Иван Lainez MD * ALL edits or amendments must be made on the electronic/computer document * MUSTAPHA History Chief complaint: suspected ruptured memb HPI: 33 yo presents with complaint pf leakage of fluid yesterday and Wednesday on one occassion each day. She denies bleeding or regular contractions. Except for previous section x2 she denies other OB history. history: : 4 Term: 2 : 0 Abortus: 1 Living children: 2 Complications (prev preg): none Previous : low uterine trans incis Number of prev : 2 Current : EDC: 12/20/18 Past medical history: denies PMH Past surgical history: (x2) Social history: , no alcohol use, no tobacco use, no drug use Medications: Home Medications: Medication Dose/Rte/Freq Days Qty Entered Last Max Daily Dose Reviewed PNV WITH FE 1 TAB PO DAILY 12/16/18 FUMARATE/FA 1207 () Strength: 1 EACH TAB Allergies Coded Allergies: No Known Allergies (12/16/18) Objective General VS: Patient Weight Weight (lb): Weight (oz): Weight (kg): Physical Exam Abdomen: gravid, soft, no abnormal tenderness Uterine activity: Monitor: toco Frequency (description): rare Pelvic exam: Pelvis clinically adequate: Narrow introitus Vulvar lesions: none Vagina: normal Uterus size in weeks: 38 Exam: soft Cervical/ exam: Dilatation (cm): 0 - closed Effacement (%): 0 station: - 5 presentation: cephalic FHR evaluation: Baseline: 135 bpm Variability: marked > 25 bpm Accelerations: 15 X 15 Decelerations: none FHR category: category 1 Membranes: Membranes: Intact (By exam) Diagnosis, Assessment Plan Diagnosis, Assessment Plan Free Text A P: 33 yo at term NIL and intact. Will obtain Amniosure per Dr. Spencer's request and likely home if negative. at 1249 RPT #:[id number] END OF REPORT [facility]
[2024-06-03 01:54] LABS: Absolute Basophils 0.1 K/uL (0-0.5); Absolute Eosinophils 0.3 K/uL (0-0.5); Absolute Lymphocytes (CBC) 1.8 K/uL (0.7-4.9); Absolute Monocytes 0.6 K/uL (0.1-1.3); Absolute Neutrophil 4.6 K/uL (1.8-8.0); Basophils % 0.8 % (0-1.3); Eosinophils % 3.6 % (0-4.4); Hematocrit 28.9 % (36.0-45.0); Hemoglobin 9.8 g/dL (12.0-15.0); Lymphocytes % 23.8 % (15.3-44.8); MCH 26.4 pg (27.0-35.0); MCV 77.7 fL (80-100); MPV 8.5 fL (7.6-11.3); Monocytes % 8.8 % (3.3-12.3); Nucleated Red Blood Cells % 0.2 % (0-0); Platelets 242 thou/uL (152-406); RBC Red Blood Cell Count 3.72 M/uL (3.86-4.86); Red Cell Distribution Width 14.8 % (12.1-15.2)
--- NOTE | 2024-06-03 02:14 | ER ---
Nurse's Notes [facility] Name: Giana Sands Age: 39 yrs Sex: Female : 1985 Arrival Date: 06/03/2024 Time: 01:00 Bed 7 Private MD: Diagnosis: Abnormal uterine and vaginal bleeding, unspecified;Anemia, unspecified Presentation: 06/03 01:31 Chief complaint: Patient states: VAGINAL BLEEDING X2 MONTHS. PT REPORTS HEAVY MENSTRUAL dd2 FLOW X2 YRS AND WAS GIVEN DEPO SHOT WHICH HELPED FOR 2 MONTHS BUT REPORTS BLEEDING EVERYDAY X2 MONTHS. Coronavirus screen: At this time, the client does not indicate any symptoms associated with coronavirus-19. Ebola Screen: No symptoms or risks identified at this time. Initial Sepsis Screen: Does the patient meet any 2 criteria? No. Patient's initial sepsis screen is negative. Does the patient have a suspected source of infection? No. Patient's initial sepsis screen is negative. Risk Assessment: Do you want to hurt yourself or someone else? Patient reports no desire to harm self or others. Onset of symptoms is unknown. 01:31 Method Of Arrival: Ambulatory dd2 01:31 Acuity: DANIELA 3 dd2 Triage Assessment: 01:33 General: Appears in no apparent distress. uncomfortable, Behavior is calm, cooperative, dd2 appropriate for age. Pain: Denies pain. 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 - Infectious Disease History:: Denies. - Social history:: Smoking status: Patient denies any tobacco usage or history of. Screenin:30 [facility] ED Fall Risk Assessment (Adult) History of falling in the last 3 months, ha1 including since admission Yes- single mechanical fall (1 pt) Confusion or Disorientation No (0 pts) Intoxicated or Sedated No (0 pts) Impaired Gait No (0 pts) Mobility Assist Device Used No (0 pt) Altered Elimination No (0 pt) Score/Fall Risk Level 0 - 2 = Low Risk Oriented to surroundings, Maintained a safe environment, Educated pt \T\ family on fall prevention, incl call for assistance when getting out of bed, Hourly rounding (assess needs \T\ fall precautionary measures) done. Abuse screen: Denies threats or abuse. Denies injuries from another. 01:30 Nutritional screening: No deficits noted. Tuberculosis screening: No symptoms or risk ha1 factors identified. Assessment: 01:27 General: Appears comfortable, Behavior is calm, cooperative. Pain: Denies pain. Neuro: ha1 Level of Consciousness is awake, alert, obeys commands, Oriented to person, place, time, situation. Cardiovascular: Capillary refill < 3 seconds Patient's skin is warm and dry. Respiratory: Airway is patent Respiratory effort is even, unlabored, Respiratory pattern is regular, symmetrical. GI: Abdomen is round non-distended, Bowel sounds present X 4 quads. : Reports vaginal bleeding that is bright red, with clots, heavy flow. Derm: Skin is healthy with good turgor, Skin is moist, Skin is normal. Musculoskeletal: Circulation, motion, and sensation intact. Range of motion: intact in all extremities. 02:20 Reassessment: Patient and/or family updated on plan of care and expected duration. Pain ha1 level reassessed. Patient is alert, oriented x 3, equal unlabored respirations, skin warm/dry/pink. Vital Signs: 01:31 BP 120 / 70; Pulse 81; Resp 16; Temp 98.5; Pulse Ox 100% ; Weight 48.53 kg; dd2 02:20 BP 112 / 53; Pulse 74; Resp 16 S; Pulse Ox 100% on R/A; ha1 ED Course: 01:05 Patient arrived in ED. gm2 01:13 Sreedhar Winters DO is Attending Physician. ms3 01:27 Patient has correct armband on for positive identification. Placed in gown. Bed in low ha1 position. Call light in reach. Side rails up X 1. 01:27 Inserted saline lock: 20 gauge in right antecubital area, using aseptic technique. ha1 Blood collected. Flushed with 10 mL NS. 01:33 Triage completed. dd2 01:33 Arm band placed on right wrist. dd2 02:20 Provided Education on: FOLLOW UP WITH OB . ha1 02:32 Yoana Galvez, RN is Primary Nurse. ha1 02:37 No provider procedures requiring assistance completed. ha1 02:38 IV discontinued, intact, bleeding controlled, No redness/swelling at site. Pressure ha1 dressing applied. Administered Medications: No medications were administered Medication: 02:36 VIS not applicable for this client. ha1 Outcome: 02:13 Discharge ordered by . ms3 02:37 Discharged to home ambulatory, with family, ha1 02:37 Condition: stable 02:37 Discharge instructions given to patient, family, Instructed on discharge instructions, follow up and referral plans. Demonstrated understanding of instructions, follow-up care, 02:38 Patient left the ED. ha1 Signatures: Sreedhar Winters DO DO ms3 Yoana Galvez, RN RN ha1 Erika Gay gm2 TYRONE DYE RN RN dd2
--- NOTE | 2024-06-03 02:15 | EDPHYS ---
Physician Documentation [facility] Name: Giana Sands Age: 39 yrs Sex: Female : 1985 Arrival Date: 06/03/2024 Time: 01:00 Bed 7 Private MD: ED Physician Sreedhar Winters HPI: 06/03 01:29 This 39 yrs old Female presents to ER via Unassigned with complaints of ms3 MENSTRUAL CYCLE FOR 1 MONTH. 01:41 39-year-old female with past medical history of anemia, mitral valve prolapse presents ms3 to the emergency department for heavy periods that have been occurring over the last 2 years. Patient states she is been on her cycle for the last month. Patient states her maintenance craftsman is Dr. Buckley in [place]. Patient has received the Depo shot and is currently taking medroxyprogesterone. Patient notes she has used 4 pads over the last hour. Patient denies pain at this time.. RISK TECH: 01:33 LMP 06/03/2024, unknown dd2 Historical: - Allergies: :33 No Known Allergies; dd2 - PMHx: :33 Anemia; mitral valve prolapse; dd2 - Immunization history:: Adult Immunizations up to date. - Infectious Disease History:: Denies. - Social history:: Smoking status: Patient denies any tobacco usage or history of. ROS: 01:41 Constitutional: Negative for fever, and chills. Cardiovascular: Negative for chest ms3 pain, and palpitations. Abdomen/GI: Negative for abdominal pain, nausea, vomiting, diarrhea, and constipation, MS/Extremity: Negative for injury and deformity, Skin: Negative for injury, rash, and discoloration, :41 Respiratory: Negative for shortness of breath, cough, wheezing, and pleuritic chest pain, :41 : Positive for vaginal bleeding, Exam: :41 Constitutional: This is a well developed, well nourished patient who is awake, alert, ms3 and in no acute distress. Cardiovascular: Regular rate and rhythm with a normal S1 and S2. No gallops, murmurs, or rubs. Normal PMI, no JVD. No pulse deficits. Respiratory: Lungs have equal breath sounds bilaterally, clear to auscultation and percussion. No rales, rhonchi or wheezes noted. No increased work of breathing, no retractions or nasal flaring. Abdomen/GI: Soft, non-tender, with normal bowel sounds. No distension or tympany. No guarding or rebound. No evidence of tenderness throughout. 02:15 : Pelvic Exam: Speculum exam: mild bleeding, no cervicitis, os that is closed, the ms3 nurse was present for the exam, Vital Signs: 01:31 BP 120 / 70; Pulse 81; Resp 16; Temp 98.5; Pulse Ox 100% ; Weight 48.53 kg; dd2 02:20 BP 112 / 53; Pulse 74; Resp 16 S; Pulse Ox 100% on R/A; ha1 MDM: 01:33 Medical Screening Exam initiated ms3 01:41 Differential diagnosis: dysfunctional uterine bleeding, uterine fibroids, Anemia. ms3 02:14 Data reviewed: vital signs, nurses notes, lab test result(s), and as a result, I will ms3 discharge patient. Historians other than the Patient: Spouse/Significant Other: Patient's . Counseling: I had a detailed discussion with the patient and/or guardian regarding the historical points, exam findings, and any diagnostic results supporting the discharge/admit diagnosis, lab results, the need for outpatient follow up, to return to the emergency department if symptoms worsen or persist or if there are any questions or concerns that arise at home. Special discussion: I discussed with the patient/guardian in detail that at this point there is no indication for admission to the hospital. It is understood, however, that if the symptoms persist or worsen the patient needs to return immediately for re-evaluation. ED course: Discussed hemoglobin of 9.8 with patient and her . On pelvic exam mild bleeding noted. Patient to follow-up with her maintenance craftsman in 2 to 3 days. Patient and her understand and agree with plan. All questions were answered. Return precautions discussed include worsening symptoms, or any other concerns.. 06/03 01:13 Order name: CBC with Diff; Complete Time: 02:02 ms3 Administered Medications: No medications were administered Disposition Summary: 06/03/24 02:13 Discharge Ordered Notes: Location: Home ms3 Condition: Stable ms3 Diagnosis - Abnormal uterine and vaginal bleeding, unspecified ms3 - Anemia, unspecified ms3 Followup: ms3 - With: Private Physician - When: 2 - 3 days - Reason: Recheck today's complaints Discharge Instructions: - Discharge Summary Sheet ms3 - Anemia ms3 - Dysfunctional Uterine Bleeding ms3 Forms: - Medication Reconciliation Form ms3 - Antibiotic Education ms3 - Prescription Opioid Use ms3 - Patient Portal Instructions ms3 - Leadership Thank You Letter ms3 Signatures: Dispatcher [employer] Sreedhar Cabrera DO DO ms3 TYRONE DYE RN RN dd2
[2024-06-03 03:19] VITALS: TEMP 98.5; O2SAT 100
[2024-06-03 03:24] VITALS: BP 112/53
== END 2024-06-03 02:38 | disposition home or self-care (01) ==
LOC: ER 01:00
DX: D64.9 Anemia, unspecified (principal)
CPT/HCPCS: 36415; 85025; 99283